=== PATIENT | male | born 1955 | race Caucasian/White ===

== ENCOUNTER → 2022-06-04 12:00 | Outpatient (CLI) | payer MEDICARE, MEDICAID, SELFPAY ==
--- NOTE | 2022-06-04 | DI.US.S_ITS ---
PROCEDURE: US ABDOMEN COMPLETE INDICATIONS: ABNORMAL SERUM ENZYME LEVEL, UNSPECIFIED TECHNIQUE: Real-time scanning was performed of the abdominal and retroperitoneal organs, with image documentation. COMPARISON: None. FINDINGS: Liver: 15 cm. Overall echotexture is within normal limits. No focal mass identified sonographically. Gallbladder: Within normal limits Biliary tree: CBD measures 4 mm. No intrahepatic dilation. Pancreas: Within normal limits Spleen: Obscured by bowel gas Kidneys: Right kidney measures 9 cm. Left kidney measures 11 cm. Left renal cyst measures up to 3.9 x 3.7 cm. No hydronephrosis. Aorta: No aneurysmal dilation Iliacs: No aneurysmal dilation IVC: Patent Free fluid/miscellaneous: No pathologic free fluid IMPRESSION: No pathologic dilation of the biliary tree. No acute sonographic gallbladder pathology. No significant sonographic abnormality of the liver. Dictated by: Miguelito Antonio M.D. on 06/04/2022 at 16:25 Approved by: Miguelito Antonio M.D. on 06/04/2022 at 16:26
== END ==
PROVIDERS: PCP Family Medicine; Referring Provider Family Medicine; Visit Provider Family Medicine
DX: R74.9 Abnormal serum enzyme level, unspecified (principal)
CPT/HCPCS: 76700

== ENCOUNTER 2023-09-11 09:58 | Emergency (ER) | payer MEDICARE, MEDICAID, SELFPAY ==
[2023-09-11] VITALS (11 sets, daily range): BP systolic 127–153; BP diastolic 70–76; PULSE 74–85; RESP 17; TEMP 36.8–36.9; O2SAT 95–98
--- NOTE | 2023-09-11 10:14 | DI.RAD.S_ITS ---
PROCEDURE: XR CHEST 1V INDICATIONS: cough TECHNIQUE: One view of the chest was acquired. COMPARISON: None. FINDINGS: Surgical changes and devices: None. Lungs and pleura: Small linear left basilar opacity likely atelectasis. Mediastinum: Mediastinal contours appear normal. Heart size is normal. Bones and chest wall: No suspicious bony lesions. Overlying soft tissues appear unremarkable. IMPRESSION: No acute pulmonary process. Dictated by: Lois Hernández M.D. on 09/11/2023 at 11:16 Approved by: Lois Hernández M.D. on 09/11/2023 at 11:17
--- NOTE | 2023-09-11 10:14 | EKG_ITS ---
[address] [address] Test Date: 2023-09-11 Pat Name: Marco Grullon Department: Room: Gender: Male [employer]: NINA : [id number] Requested By: Order Number: [id number] Reading MD: Rohan Ricketts MD Measurements Intervals [place] Rate: 77 P: 39 OH: 130 QRS: 51 QRSD: 74 T: 39 QT: 398 QTc: 450 Interpretive Statements Normal sinus rhythm Electronically Signed On 09-12-2023 7:25:04 PDT by Rohan Ricketts MD
[2023-09-11 11:12] LABS: Add Manual Diff / Slide Review NO; Basophils Absolute Auto 0 /uL (0-100); Basophils Percent Auto 0.5 % (0-2); Eosinophils Absolute Auto 700 /uL (0-450); Eosinophils Percent Auto 9.1 % (2-4); Hematocrit 41.3 % (41-53); Hemoglobin 13.6 g/dL (13.5-17.5); Lymphocytes Absolute Auto 2600 /uL (1100-4500); Lymphocytes Percent Auto 32.9 % (25-40); Mean Corpuscular HGB Conc 32.9 % (30-36); Mean Corpuscular Hemoglobin 29.9 PG (26-34); Mean Corpuscular Volume 90.9 fL (80-100); Monocytes Absolute Auto 600 /uL (0-900); Monocytes Percent Auto 8.1 % (3-14); Neutrophils Absolute Auto 4000 /uL (1500-7000); Neutrophils Percent Auto 49.4 % (50-75); Platelet Count 345 X10^3/uL (150-400); Red Blood Cell Count 4.55 X10^6/uL (4.5-5.9); Red Cell Distribution Width 13.6 % (11.6-14.8)
[2023-09-11 11:28] LABS: Lactate (Lactic Acid) 0.8 mmol/L (0.7-2.1)
[2023-09-11 11:29] LABS: Alanine Aminotransferase 57 IU/L (<50); Albumin 4.1 g/dL (3.5-5.0); Albumin Globulin Ratio 1.1 (1.0-2.8); Alkaline Phosphatase 173 U/L (38-126); Aspartate Aminotransferase 37 IU/L (17-59); Bilirubin Total 0.6 mg/dL (0.2-1.3); Blood Urea Nitrogen 23 mg/dL (9-20); Calcium 8.9 mg/dL (8.4-10.2); Carbon Dioxide 30 mmol/L (22-32); Chloride 106 mmol/L (98-107); Estimated Glomerular Filt Rate 58 mL/min (>60); Globulin 3.6 g/dL (1.7-4.1); Glucose 94 mg/dL (80-110); HEMOLYSIS < 15 (0-50); Lipase 76 U/L (23-300); Potassium 4.7 mmol/L (3.4-5.1); Sodium 141 mmol/L (137-145); Total Protein 7.7 g/dL (6.3-8.2)
[2023-09-11 11:41] LABS: Troponin I < 0.012 ng/mL (0.01-0.034)
[2023-09-11 11:47] LABS: Procalcitonin 0.056 ng/mL (<0.5)
[2023-09-11 12:02] LABS: Adenovirus Not Detected (Not Detect); B. parapertussis Not Detected (Not Detecte); Bordetella pertussis Not Detected (Not Detect); Chlamydophila pneumoniae Not Detected (Not Detect); Coronavirus 229E Not Detected (Not Detect); Coronavirus HKU1 Not Detected (Not Detect); Coronavirus NL 63 Not Detected (Not Detect); Coronavirus OC43 Not Detected (Not Detect); Human Metapneumovirus Not Detected (Not Detect); Human Rhinovirus/Enterovirus Not Detected (Not Detect); Influenza A Not Detected (Not Detect); Influenza B Not Detected (Not Detect); Mycoplasma pneumoniae Not Detected (Not Detect); Parainfluenza Virus 1 Not Detected (Not Detect); Parainfluenza Virus 2 Not Detected (Not Detect); Parainfluenza Virus 3 Not Detected (Not Detect); Parainfluenza Virus 4 Not Detected (Not Detect); Respiratory Syncytial Virus Not Detected (Not Detect)
[2023-09-11 12:05] LABS: SARS- CoV-2 Detected (Not Detecte)
[2023-09-11 12:10] LABS: Urine Volume 10mL (spun)
[2023-09-11 12:21] LABS: Bacteria Urine None Seen; RBC Urine None Seen (0-5/HPF); Squamous Epithelial Cell Urine None Seen (0-5/HPF); WBC Urine 0-1/HPF (0-5/HPF)
--- NOTE | 2023-09-11 12:21 | ED_ITS ---
HPI - Abdominal Pain General Chief Complaint: Abdominal Pain Stated Complaint: abd/back pain t-10 Time Seen by Provider: 09/11/23 12:21 Source: patient Mode of arrival: Wheelchair History of Present Illness HPI narrative: Patient is a 67-year-old male history of to subarachnoid hemorrhages in the past, short-term memory loss, hyperlipidemia AVM of the brain recent admission to outside facility August 24 through through August 27 for diverticulitis with abscess. It was managed and followed closely with General surgery. Interventional Radiology did not feel a need to intervene. He was given IV Zosyn in the hospital and discharged home on Augmentin. He presents today with back pain and coughing up green sputum. Sister is with him says he has short- term memory loss. She reports that he has been having some upper abdominal pain for the last couple of days. She does report that he has had quite a lot of flatulence while they been reading in the ED. Patient denies any pain now. He overall appears comfortable. Related Data Allergies Allergy/AdvReac Type Severity Reaction Status Date / Time No Known Drug Allergies Allergy Verified 09/11/23 11:51 Patient History Social History Smoking Status: Former smoker Smoking Status: Former smoker alcohol intake frequency: other Substance Use Type: does not use Exam Initial Vital Signs Initial Vital Signs: Vital Signs Temperature 98.5 F 09/11/23 10:09 Pulse Rate 85 09/11/23 10:09 Respiratory Rate 17 09/11/23 10:09 Blood Pressure 127/72 09/11/23 10:09 Pulse Oximetry 95 09/11/23 10:09 Oxygen Delivery Method Room Air 09/11/23 10:09 GENERAL: Alert well-appearing 67-year-old male and in no acute distress. HEENT: Head atraumatic,EOMI, pupils reactive, face symmetric, moist mucous membranes CARDIOVASCULAR: Regular rate and rhythm without murmurs, rubs or gallops. RESPIRATORY: Breath sounds equal bilaterally, no wheezes rales or rhonchi. ABDOMEN: Soft nontender slightly distended no guarding no rebound EXTREMITIES: Normal range of motion, no clubbing or edema. Neurovascularly intact NEUROLOGICAL: Moving all extremities no facial droop no focal deficits SKIN: Warm, dry, no laceration, no petechiae, no rashes or lesions. Course Orders Ordered: ED Orders 09/11/23 11:00 Complete Blood Count AUTO DIFF Stat Comprehensive Metabolic Panel Stat Lactate (Lactic Acid) Stat Lipase Stat Procalcitonin Stat Trop I [Troponin I] Stat 09/11/23 11:02 Respiratory Panel (Film Array) Stat 09/11/23 11:43 Urine Microscopic Stat 09/11/23 13:37 CT abdomen pelvis w con Stat Discontinued Medications Ondansetron HCl (Ondansetron 4 Mg/2 Ml Inj) 4 mg IV NOW PRN PRN Reason: Nausea And Vomiting Ondansetron HCl (Ondansetron 4 Mg Odt) 4 mg PO NOW PRN PRN Reason: Nausea And Vomiting Vital Signs Vital signs: Vital Signs - 8 hr 09/11/23 11:17 09/11/23 11:30 09/11/23 11:30 Temperature Pulse Rate 80 80 Blood Pressure 153/72 H Pulse Oximetry 95 96 09/11/23 12:00 09/11/23 12:30 09/11/23 12:30 Temperature Pulse Rate 80 75 Blood Pressure 138/76 Pulse Oximetry 98 96 09/11/23 13:00 09/11/23 13:00 09/11/23 13:30 Temperature Pulse Rate 78 74 Blood Pressure 151/71 H Pulse Oximetry 96 97 09/11/23 13:30 09/11/23 14:00 09/11/23 14:00 Temperature Pulse Rate 80 Blood Pressure 137/70 145/71 H Pulse Oximetry 96 09/11/23 14:30 09/11/23 15:00 09/11/23 15:30 Temperature 98.3 F Pulse Rate 80 75 79 Blood Pressure Pulse Oximetry 97 96 95 09/11/23 15:30 Temperature Pulse Rate Blood Pressure 152/70 H Pulse Oximetry MDM - Abdominal Pain Lab Data 09/11/23 11:00 09/11/23 11:00 Labs: Lab Results 09/11/23 09/11/23 09/11/23 Range/Units 11:00 11:02 11:43 WBC 8.0 (4.5-11.0) X10^3/uL RBC 4.55 (4.5-5.9) X10^6/uL Hgb 13.6 (13.5-17.5) g/dL Hct 41.3 (41-53) % MCV 90.9 (80-100) fL MCH 29.9 (26-34) PG MCHC 32.9 (30-36) % RDW 13.6 (11.6-14.8) % Plt Count 345 (150-400) X10^3/uL Neut % (Auto) 49.4 L (50-75) % Lymph % (Auto) 32.9 (25-40) % [place] % (Auto) 8.1 (3-14) % Eos % (Auto) 9.1 H (2-4) % Baso % (Auto) 0.5 (0-2) % Neut # (Auto) 4000 (4053-0338) /uL Lymph # (Auto) 2600 (8457-5209) /uL [place] # (Auto) 600 (0-900) /uL Eos # (Auto) 700 H (0-450) /uL Baso # (Auto) 0 (0-100) /uL Sodium 141 (137-145) mmol/L Potassium 4.7 (3.4-5.1) mmol/L Chloride 106 (98-107) mmol/L Carbon Dioxide 30 (22-32) mmol/L BUN 23 H (9-20) mg/dL Creatinine 1.35 H (0.66-1.25) mg/dL Estimated GFR 58 L (>60) mL/min BUN/Creatinine Ratio 17.0 (6-22) Glucose 94 (80-110) mg/dL Lactate 0.8 (0.7-2.1) mmol/L Calcium 8.9 (8.4-10.2) mg/dL Total Bilirubin 0.6 (0.2-1.3) mg/dL AST 37 (17-59) IU/L ALT 57 H (<50) IU/L Alkaline Phosphatase 173 H (38-126) U/L Troponin I < 0.012 (0.01-0.034) ng/mL Total Protein 7.7 (6.3-8.2) g/dL Albumin 4.1 (3.5-5.0) g/dL Globulin 3.6 (1.7-4.1) g/dL Albumin/Globulin Ratio 1.1 (1.0-2.8) Lipase 76 (23-300) U/L Procalcitonin 0.056 (<0.5) ng/mL Urine RBC None seen (0-5/HPF) Urine WBC 0-1/hpf (0-5/HPF) Ur Squamous Epith Cells None seen (0-5/HPF) Urine Bacteria None seen (None) Ur Culture Indicated? Cult not indicated Vol Urine Centrifuged 10ml (spun) Chlamy pneumoniae PCR Not detected (Not Detect) Adenovirus (PCR) Not detected (Not Detect) B.parapertussis DNA PCR Not detected (Not Detecte) Coronavirus OC43 (PCR) Not detected (Not Detect) Coronavirus HKU1 (PCR) Not detected (Not Detect) Coronavirus 229E (PCR) Not detected (Not Detect) SARS-CoV-2 (PCR) Detected H (Not Detecte) Coronavirus NL63 (PCR) Not detected (Not Detect) Human Metapneumovir PCR Not detected (Not Detect) Influenza Type A (PCR) Not detected (Not Detect) Influenza Type B (PCR) Not detected (Not Detect) M. pneumoniae (PCR) Not detected (Not Detect) Parainfluenza 1 (PCR) Not detected (Not Detect) Parainfluenza 2 (PCR) Not detected (Not Detect) Parainfluenza 3 (PCR) Not detected (Not Detect) Parainfluenza 4 (PCR) Not detected (Not Detect) RSV (PCR) Not detected (Not Detect) Entero/Rhino (PCR) Not detected (Not Detect) Point of care testing: Urine Dip Bedside Urine Glucose Negative Bedside Urine Bilirubin - Negative Bedside Urine Ketone - Negative Urine Specific [place] 1.020 Bedside Urine Occult Blood - Negative Bedside Urine pH 5.5 Bedside Urine Protein +/- 15 Bedside Urine Urobilinogen - Negative Bedside Urine Nitrite - Negative Bedside Urine Leukocytes - Negative Esterase Imaging Data CT scan - abdomen/pelvis: Radiologist's Impression: ADDENDUMThis report includes an Addendum and supersedes previous reports for this exam. PROCEDURE: CT ABDOMEN PELVIS W CON INDICATIONS: pain hx of diverticulitis with abcess TECHNIQUE: After the administration of intravenous contrast, axial sections acquired from the lung bases to the pubic symphysis. Coronal and sagittal reformats were performed. For radiation dose reduction, the following was used: automated exposure control, adjustment of mA and/or kV according to patient size. COMPARISON: None. FINDINGS: Image quality: Diagnostic. Lower Chest: No significant findings. ABDOMEN: Liver: No solid mass. Gallbladder: No radiopaque gallstones or wall thickening. Biliary ducts: No biliary dilation. Pancreas: No ductal dilation. Spleen: Size is within normal limits. Adrenal Glands: No adrenal nodules. Kidneys and Ureters: No hydronephrosis. No solid mass. No complex renal cystic lesion which requires follow up. Stomach and Bowel: There is acute sigmoid diverticulitis. There is an associated early subjacent abscess which is predominantly air-filled but has associated fluid. It measures approximately 2.3 x 1.7 cm. Reference image 64 series 2. On that same image, a small amount of free subjacent air in the fat is noted and a small distance from the abscess cavity. Peritoneum: No abnormal intraperitoneal fluid. No free air. Ventral Wall: No significant ventral hernia. Abdominal Nodes: No retroperitoneal or mesenteric adenopathy by size criteria. Vessels: Aorta and inferior vena cava are normal in size. Extensive atherosclerotic peripheral vascular disease. Suspect bilateral flow limiting common iliac artery stenosis. The aorta has a stenosis of perhaps 50%. PELVIS: Pelvic Organs: Mild prostatomegaly.. Bladder: No bladder wall thickening, accounting for underdistention. Pelvic Nodes: No enlarged lymph nodes. Miscellaneous: Small bilateral fat containing inguinal hernias. Bones: No aggressive osseous abnormality. There is a mild superior endplate compression of T12 which may be subacute. IMPRESSION: 1. Perforated sigmoid diverticulitis with small subjacent abscess containing predominantly air and minimal air present in the tissues at outside of the abscess. 2. Suspect hemodynamically sig aortoiliac disease. Recommend correlation for presence or absence of lifestyle limiting claudication symptoms. 3. A mild T12 compression may be subacute. Dictated by: Roshan Edmondson M.D. on 09/11/2023 at 14:44 Approved by: Roshan Edmondson M.D. on 09/11/2023 at 14:52 ADDENDUM: Addendum: Comparison is made to a prior study from [facility] dated 08/25/2023. Diverticulitis with associated Radha diverticular abscess was present at that time as well. There was a large amount of air in the cavity at that time as well, indicating that there was fistulous communication. The size of the abscess has decreased in size. It previously measured 4.0 x 2.3 cm. It currently measures 2.3 x 1.7 cm. The compression fracture of T12 was present on the previous study as well. It is slightly progressed. ADDENDED IMPRESSION: 1. Perforated sigmoid diverticulitis with small subjacent abscess containing predominantly air and minimal air present in the tissues at outside of the abscess. On a previous study on 08/25/2023, there was also perforated diverticulitis with fistulous communication to an abscess cavity. This abscess cavity has definitely decreased in size since the previous study. 2. Suspect hemodynamically significant aortoiliac disease. Recommend correlation for presence or absence of lifestyle limiting claudication symptoms. 3. A mild T12 compression is subacute and has slightly progressed. Dictated by: Roshan Edmondson M.D. on 09/11/2023 at 15:08 Approved by: Roshan Edmondson M.D. on 09/11/2023 at 15:12 Addendum Dictated By: Roshan Edmondson MD Addendum Signed By: 09/11/231511 Addendum Cosigned By: DD/ /25/1512 TD/TT: 09/11/2301/25/1512 PROCEDURE: CT ABDOMEN PELVIS W CON INDICATIONS: pain hx of diverticulitis with abcess TECHNIQUE: After the administration of intravenous contrast, axial sections acquired from the lung bases to the pubic symphysis. Coronal and sagittal reformats were performed. For radiation dose reduction, the following was used: automated exposure control, adjustment of mA and/or kV according to patient size. COMPARISON: None. FINDINGS: Image quality: Diagnostic. Lower Chest: No significant findings. ABDOMEN: Liver: No solid mass. Gallbladder: No radiopaque gallstones or wall thickening. Biliary ducts: No biliary dilation. Pancreas: No ductal dilation. Spleen: Size is within normal limits. Adrenal Glands: No adrenal nodules. Kidneys and Ureters: No hydronephrosis. No solid mass. No complex renal cystic lesion which requires follow up. Stomach and Bowel: There is acute sigmoid diverticulitis. There is an associated early subjacent abscess which is predominantly air-filled but has associated fluid. It measures approximately 2.3 x 1.7 cm. Reference image 64 series 2. On that same image, a small amount of free subjacent air in the fat is noted and a small distance from the abscess cavity. Peritoneum: No abnormal intraperitoneal fluid. No free air. Ventral Wall: No significant ventral hernia. Abdominal Nodes: No retroperitoneal or mesenteric adenopathy by size criteria. Vessels: Aorta and inferior vena cava are normal in size. Extensive atherosclerotic peripheral vascular disease. Suspect bilateral flow limiting common iliac artery stenosis. The aorta has a stenosis of perhaps 50%. PELVIS: Pelvic Organs: Mild prostatomegaly.. Bladder: No bladder wall thickening, accounting for underdistention. Pelvic Nodes: No enlarged lymph nodes. Miscellaneous: Small bilateral fat containing inguinal hernias. Bones: No aggressive osseous abnormality. There is a mild superior endplate compression of T12 which may be subacute. IMPRESSION: 1. Perforated sigmoid diverticulitis with small subjacent abscess containing predominantly air and minimal air present in the tissues at outside of the abscess. 2. Suspect hemodynamically sig aortoiliac disease. Recommend correlation for presence or absence of lifestyle limiting claudication symptoms. 3. A mild T12 compression may be subacute. Dictated by: Roshan Edmondson M.D. on 09/11/2023 at 14:44 Chest x-ray: Radiologist's Impression: PROCEDURE: XR CHEST 1V INDICATIONS: cough TECHNIQUE: One view of the chest was acquired. COMPARISON: None. FINDINGS: Surgical changes and devices: None. Lungs and pleura: Small linear left basilar opacity likely atelectasis. Mediastinum: Mediastinal contours appear normal. Heart size is normal. Bones and chest wall: No suspicious bony lesions. Overlying soft tissues appear unremarkable. IMPRESSION: No acute pulmonary process. Dictated by: Lois Hernández M.D. on 09/11/2023 at 11:16 ECG Data Attestation: I personally reviewed and interpreted this ECG as follows: Interpretation: Normal sinus rhythm rate 77 NE interval 130 QRS [address] changes MDM Narrative Medical decision making narrative: [facility] CC: Abdominal pain cough phlegm Complicating co-morbidities: Short-term memory loss multiple subarachnoid hemorrhages recent admission with diverticulitis and abscess Corroborating data: [ ] Data collected from: Sister at bedside Medical records reviewed: Records from [facility] reviewed Differential considered: Sepsis, perforation bowel obstruction, Exam documented above, pertinent findings include: Mild distention overall appears well abdomen is soft nontender Lab Test results independently reviewed as above. Pertinent findings: WBC 8.0, hemoglobin 13.6 hematocrit 41.3 platelets 345, BUN 23 creatinine 1.3 which is baseline lactate 0.8, bilirubin 0.6, AST 37, ALT 57, alk-phos 173, troponin negative procalcitonin 0.056 Independently reviewed EKG as above Imaging studies independently reviewed: Chest x-ray no acute cardiopulmonary process CT does show continued abscess with perforation but it is smaller than previously. Today measures 2.2 x 1.7 previously 4.0 x 2.3 Consultations: 15:07 I spoke with radiologist Dr. Edmondson he was able to compare today's CT with outside facility, reports that there is decreased size and abscess Dr. Nick surgery updated on patient's symptoms test results has reviewed CT herself. States that patient consistent on Augmentin and finish out the course. Shrinking abscess. May have a fistula but no intervention at this time Treatments: None Re-evaluations: Patient has not required anything for his abdominal pain his abdomen is soft he has not having any pain in the ED. Discussion: Patient is 67-year-old male history of short-term memory last recent admission and diagnosis diverticulitis with abscess presents today with upper respiratory like symptoms and increasing pain. CT shows actual improvement of the abscess confirmed by Radiology. Surgery was again consulted and recommend continued management. Blood work is overall reassuring without any evidence of sepsis or significant leukocytosis. Due to patient's upper respiratory symptoms he was swabbed the respiratory panel and he is positive for COVID. He has not hypoxic chest x-ray is clear at this time recommend supportive care only. Discharge Plan Departure Patient Disposition: Home Clinical Impression: Diverticulitis, COVID-19 Instructions: DI for Diverticulitis Activity Restrictions/Additional Instructions: *You have been diagnosed with you have COVID-19 and a continued abscess *What to do: The abscess today is a lot smaller than what it was. I did consult with our surgeon here who recommended continuing your antibiotics You also have COVID-19. Expect to have fever and not feel well *Continue to take medications as directed Condition antibiotics as prescribed *Follow up with your primary care provider in 2-3 days or call [phone] *Return to ER if you should have increasing abdominal pain change in bowel habits persistent vomiting or any new, worsening or concerning symptoms Referrals: Hemanth Segura MD [Primary Care Provider] - Stand Alone Forms: Patient Portal/API
[2023-09-11 12:22] LABS: Culture Indicated Urine Cult Not Indicated
--- NOTE | 2023-09-11 13:37 | DI.CT.S_ITS ---
PROCEDURE: CT ABDOMEN PELVIS W CON INDICATIONS: pain hx of diverticulitis with abcess TECHNIQUE: After the administration of intravenous contrast, axial sections acquired from the lung bases to the pubic symphysis. Coronal and sagittal reformats were performed. For radiation dose reduction, the following was used: automated exposure control, adjustment of mA and/or kV according to patient size. COMPARISON: None. FINDINGS: Image quality: Diagnostic. Lower Chest: No significant findings. ABDOMEN: Liver: No solid mass. Gallbladder: No radiopaque gallstones or wall thickening. Biliary ducts: No biliary dilation. Pancreas: No ductal dilation. Spleen: Size is within normal limits. Adrenal Glands: No adrenal nodules. Kidneys and Ureters: No hydronephrosis. No solid mass. No complex renal cystic lesion which requires follow up. Stomach and Bowel: There is acute sigmoid diverticulitis. There is an associated early subjacent abscess which is predominantly air-filled but has associated fluid. It measures approximately 2.3 x 1.7 cm. Reference image 64 series 2. On that same image, a small amount of free subjacent air in the fat is noted and a small distance from the abscess cavity. Peritoneum: No abnormal intraperitoneal fluid. No free air. Ventral Wall: No significant ventral hernia. Abdominal Nodes: No retroperitoneal or mesenteric adenopathy by size criteria. Vessels: Aorta and inferior vena cava are normal in size. Extensive atherosclerotic peripheral vascular disease. Suspect bilateral flow limiting common iliac artery stenosis. The aorta has a stenosis of perhaps 50%. PELVIS: Pelvic Organs: Mild prostatomegaly.. Bladder: No bladder wall thickening, accounting for underdistention. Pelvic Nodes: No enlarged lymph nodes. Miscellaneous: Small bilateral fat containing inguinal hernias. Bones: No aggressive osseous abnormality. There is a mild superior endplate compression of T12 which may be subacute. IMPRESSION: 1. Perforated sigmoid diverticulitis with small subjacent abscess containing predominantly air and minimal air present in the tissues at outside of the abscess. 2. Suspect hemodynamically sig aortoiliac disease. Recommend correlation for presence or absence of lifestyle limiting claudication symptoms. 3. A mild T12 compression may be subacute. Dictated by: Roshan Edmondson M.D. on 09/11/2023 at 14:44 Approved by: Roshan Edmondson M.D. on 09/11/2023 at 14:52
== END 2023-09-11 15:32 | disposition home or self-care (01) ==
PROVIDERS: Emergency Provider Emergency Medicine; PCP Family Medicine
DX: U07.1 COVID-19 (principal); K57.92 Diverticulitis of intestine, part unspecified, without perforation or abscess without bleeding
CPT/HCPCS: 36415; 71045; 74177; 80053; 81003; 81015; 83605; 83690; 84145; 84484; 85025; 87633; 93005; 99284; Q9967

== ENCOUNTER → 2023-12-15 14:12 | Outpatient (CLI) | payer MEDICARE, MEDICAID, SELFPAY ==
[2023-12-15 14:52] LABS: Add Manual Diff / Slide Review NO; Basophils Absolute Auto 100 /uL (0-100); Basophils Percent Auto 0.6 % (0-2); Eosinophils Absolute Auto 300 /uL (0-450); Eosinophils Percent Auto 3.6 % (2-4); Hematocrit 41.7 % (41-53); Hemoglobin 13.9 g/dL (13.5-17.5); Lymphocytes Absolute Auto 2500 /uL (1100-4500); Lymphocytes Percent Auto 30.4 % (25-40); Mean Corpuscular HGB Conc 33.4 % (30-36); Mean Corpuscular Hemoglobin 30.6 PG (26-34); Mean Corpuscular Volume 91.6 fL (80-100); Monocytes Absolute Auto 500 /uL (0-900); Monocytes Percent Auto 6.2 % (3-14); Neutrophils Absolute Auto 4900 /uL (1500-7000); Neutrophils Percent Auto 59.2 % (50-75); Platelet Count 212 X10^3/uL (150-400); Red Blood Cell Count 4.56 X10^6/uL (4.5-5.9); Red Cell Distribution Width 14.3 % (11.6-14.8); White Blood Cell Count 8.3 X10^3/uL (4.5-11.0)
[2023-12-15 15:34] LABS: Alanine Aminotransferase 44 IU/L (<50); Albumin 3.8 g/dL (3.5-5.0); Albumin Globulin Ratio 1.3 (1.0-2.8); Alkaline Phosphatase 115 U/L (38-126); Aspartate Aminotransferase 36 IU/L (17-59); BUN Creatinine Ratio 20.5 (6-22); Bilirubin Total 0.4 mg/dL (0.2-1.3); Blood Urea Nitrogen 26 mg/dL (9-20); Calcium 9.3 mg/dL (8.4-10.2); Carbon Dioxide 25 mmol/L (22-32); Chloride 107 mmol/L (98-107); Estimated Glomerular Filt Rate > 60 mL/min (>60); Glucose 131 mg/dL (80-110); HEMOLYSIS 27 (0-50); Potassium 4.1 mmol/L (3.4-5.1); Sodium 140 mmol/L (137-145); Total Protein 6.8 g/dL (6.3-8.2)
== END ==
PROVIDERS: PCP Family Medicine; Referring Provider Surgery; Visit Provider Surgery
DX: K57.80 Diverticulitis of intestine, part unspecified, with perforation and abscess without bleeding (principal)
CPT/HCPCS: 36415; 80053; 85025; 99213

== ENCOUNTER → 2023-12-16 09:10 | Outpatient (CLI) | payer MEDICARE, MEDICAID, SELFPAY ==
--- NOTE | 2023-12-16 09:11 | DI.CT.S_ITS ---
PROCEDURE: CT ABDOMEN PELVIS W CON INDICATIONS: Diverticular abscess TECHNIQUE: After the administration of intravenous contrast, axial sections acquired from the lung bases to the pubic symphysis. Coronal and sagittal reformats were performed. For radiation dose reduction, the following was used: automated exposure control, adjustment of mA and/or kV according to patient size. COMPARISON: [facility], CT, CT ABDOMEN PELVIS W CON, 09/11/2023, 14:12. FINDINGS: Image quality: Diagnostic. Lower Chest: Mild linear bibasilar atelectasis. Coronary artery calcifications. Mild cardiomegaly. Right atrial enlargement. ABDOMEN: Liver: No solid mass. Gallbladder: No radiopaque gallstones or wall thickening. Biliary ducts: No biliary dilation. Pancreas: No ductal dilation. Spleen: Size is within normal limits. Adrenal Glands: No adrenal nodules. Kidneys and Ureters: No hydronephrosis. No solid mass. No complex renal cystic lesion which requires follow up. Stomach and Bowel: Resolution of previous air-filled Radha diverticular sigmoid abscess. Sigmoid diverticulosis without evidence of acute diverticulitis. Peritoneum: No abnormal intraperitoneal fluid. No free air. Ventral Wall: No significant ventral hernia. Abdominal Nodes: No retroperitoneal or mesenteric adenopathy by size criteria. Vessels: Aorta and inferior vena cava are normal in size. [id number] complex hard and soft distal aortic plaque resulting in a luminal stenosis of nearly 50%. A right common iliac artery stenosis may potentially be hemodynamically significant. PELVIS: Pelvic Organs: Prostatomegaly, as before. Bladder: No bladder wall thickening, accounting for underdistention. Pelvic Nodes: No enlarged lymph nodes. Miscellaneous: No inguinal hernias are seen. Bones: No aggressive osseous abnormality. Again noted is a T12 compression which has refractured, with an acute or subacute component, [id number]. IMPRESSION: 1. Resolution of sigmoid diverticulitis and a Radha diverticular abscess. 2. Interval Re fracture at T12, acute or subacute. 3. Aortoiliac atherosclerotic disease is potentially hemodynamically significant. Dictated by: Roshan Edmondson M.D. on 12/16/2023 at 15:43 Approved by: Roshan Edmondson M.D. on 12/16/2023 at 15:48
== END ==
LOC: CT 09:10
PROVIDERS: PCP Family Medicine; Referring Provider Surgery; Visit Provider Surgery
DX: K57.80 Diverticulitis of intestine, part unspecified, with perforation and abscess without bleeding (principal); I70.0 Atherosclerosis of aorta; M48.54XA Collapsed vertebra, not elsewhere classified, thoracic region, initial encounter for fracture; N40.0 Benign prostatic hyperplasia without lower urinary tract symptoms; I25.10 Atherosclerotic heart disease of native coronary artery without angina pectoris; I51.7 Cardiomegaly
CPT/HCPCS: 74177; Q9967

== ENCOUNTER → 2024-01-26 13:16 | Outpatient (CLI) | payer MEDICARE, MEDICAID, SELFPAY ==
--- NOTE | 2024-01-26 | DI.RAD.S_ITS ---
PROCEDURE: XR CHEST 2V INDICATIONS: COUGH TECHNIQUE: 2 views of the chest were acquired. COMPARISON: [facility], CR, XR CHEST 1V, 09/11/2023, 10:17. FINDINGS: Heart, mediastinum and pulmonary vascular: Heart is normal in size and configuration. Mediastinum is unremarkable. Pulmonary vascular is normal. Lungs: Mild atelectasis present in both lung bases. Pleural spaces: Normal-no effusions or pneumothorax. Bones and soft tissues: Syndesmophytes bridging thoracic vertebral bodies -3 history of chronic ankylosing spondylitis. There is mild degenerative disc disease throughout the thoracic spine IMPRESSION: Mild bibasilar atelectasis. Dictated by: Rohan Sheikh M.D. on 01/27/2024 at 10:13 Approved by: Rohan Sheikh M.D. on 01/27/2024 at 10:15
== END ==
LOC: RAD 13:17
PROVIDERS: PCP Family Medicine; Referring Provider Family Medicine; Visit Provider Family Medicine
DX: J98.11 Atelectasis (principal); R05.9 Cough, unspecified
CPT/HCPCS: 71046

== ENCOUNTER 2024-03-08 18:03 | Emergency (ER) | payer MEDICARE, MEDICAID, SELFPAY ==
[2024-03-08] VITALS (41 sets, daily range): BP systolic 119–159; BP diastolic 61–82; PULSE 80–95; RESP 17–36; TEMP 36.9; O2SAT 92–99; BMI 21.7
--- NOTE | 2024-03-08 18:41 | DI.CT.S_ITS ---
PROCEDURE: CT HEAD/BRAIN WO CON INDICATIONS: previous strokes and sudden onset worst headache of life. TECHNIQUE: Noncontrast 4.5 mm thick angled axial sections acquired from the foramen magnum to the vertex, with coronal and sagittal reformats. For radiation dose reduction, the following was used: automated exposure control, adjustment of mA and/or kV according to patient size. COMPARISON: None. FINDINGS: Image quality: Diagnostic. Brain: There is ill-defined masslike prominence the central portion of the frontal lobe extending to the level of the lateral ventricles. It is poorly defined with areas of hyperdensity measuring approximately 3.9 x 2.9 cm. It is causing 0.7 cm left right midline shift. Hyperdensity is present within the ventricles most severe in the frontal ventricles as well as 3rd ventricle. There is suspected mild ventricular dilation, although no priors are available for comparison. There is cerebral volume loss for age, with resultant ventricular and sulcal prominence. There are periventricular and deep white matter chronic small vessel ischemic changes. There is intracranial internal carotid artery atherosclerosis. Skull and face: Calvarium and visualized facial bones appear intact, without suspicious lesions. Sinuses: Visualized sinuses and mastoids are clear. IMPRESSION: Ill-defined mass with hyperdensity causing effacement of the left frontal horn as well as midline shift. Intraventricular hemorrhage is present. While areas of hyperdensity within the mass are felt to represent hemorrhage, other areas appear denser than expected for hemorrhage and are suspicious for calcification. No priors are available. Mass may be related to prior vascular malformation with recent hemorrhage. However, other etiologies cannot be excluded. The above findings were discussed with Dr. Serjio Moseley on 03/08/2024 at 7:13 p.m.. Dictated by: Lois Hernández M.D. on 03/08/2024 at 19:11 Approved by: Lois Hernández M.D. on 03/08/2024 at 19:19
--- NOTE | 2024-03-08 18:45 | PC.NURSE ---
This RN is familiar with this patient and smile is at this patient baseline. right sided of smile doesn't rise when patient actively smiles.
--- NOTE | 2024-03-08 18:59 | ED_ITS ---
HPI - Headache General Chief Complaint: Headache Stated Complaint: pain in neck and head previous stroke Time Seen by Provider: 03/08/24 18:56 History of Present Illness HPI Narrative: 68-year-old male with history of prior AVM diagnosed at age 20 that was felt to be inoperable, resides at [facility] in [place] due to encephalitis diagnosis 8 years ago, complained of acute onset nontraumatic severe headache today 2pm at the base of his neck radiating to the top of his head posteriorly. No nausea or vomiting. Headache symptoms have been persisting. He finally arrived here for further evaluation. No seizure shaking activity. No focal weakness to face arm or leg. Baseline mental status for family who are at bedside. Related Data Home Medications Medication Instructions Recorded Confirmed simvastatin 20 mg tablet 20 mg PO DAILY 12/15/23 12/22/23 tamsulosin 0.4 mg capsule 0.4 mg PO DAILY 12/15/23 12/22/23 Allergies Allergy/AdvReac Type Severity Reaction Status Date / Time No Known Drug Allergies Allergy Verified 12/22/23 15:25 Patient History Medical History Stroke Coronary artery disease Hyperlipemia Hypertension Dementia Social History Smoking Status: Former smoker Smoking Status: Former smoker alcohol intake frequency: other Exam Narrative Exam Narrative: GENERAL: Well-developed patient, in mild distress. HEAD: Atraumatic. Normocephalic. EYES: Pupils equal round and reactive. Extraocular motions intact. No scleral icterus. No injection or drainage. ENT: Nose without bleeding, purulent drainage. Throat without erythema, tonsillar hypertrophy or exudate. Airway patent. Hearing aids bilateral removed, TMs clear. NECK: Trachea midline. Non tender CARDIOVASCULAR: Regular rate and rhythm without murmurs, gallops, or rubs. RESPIRATORY: Clear to auscultation. Breath sounds equal bilaterally. No wheezes, rales, or rhonchi. GASTROINTESTINAL: Abdomen soft, non-tender, nondistended. EXTREMITIES: No edema or joint tenderness. BACK: Nontender without deformity or crepitance. No flank tenderness. NEURO: Alert, looking around, soft but clear speech, cooperative. Cranial nerves 2-12 intact, motor 5/5 upper and lower extremities. SKIN: No rash or erythema of visible areas Initial Vital Signs Initial Vital Signs: Vital Signs Pulse Rate 95 H 03/08/24 18:23 Blood Pressure 159/72 H 03/08/24 18:23 Pulse Oximetry 96 03/08/24 18:23 Course Orders Ordered: Discontinued Medications Dexamethasone (Dexamethasone 10 Mg/Ml Vial) 10 mg IV NOW ONE Stop: 03/08/24 19:03 Last Admin: 03/08/24 19:41 Dose: 10 mg Documented By: RODRIGO Diphenhydramine HCl (Diphenhydramine 50 Mg/Ml Vial) 25 mg IV NOW ONE Stop: 03/08/24 19:03 Last Admin: 03/08/24 19:39 Dose: 25 mg Documented By: RODRIGO Sodium Chloride (Normal Saline 0.9%) 1,000 mls @ 1,000 mls/hr IV BOLUS ONE Stop: 03/08/24 20:01 Last Infusion: 03/08/24 20:50 Dose: Infused Documented By: Admin: 03/08/24 19:33 Dose: 1,000 mls/hr Documented By: RODRIGO Levetiracetam 2,000 mg/ Sodium (Chloride) 120 mls @ 480 mls/hr IV NOW ONE Stop: 03/08/24 20:12 Last Infusion: 03/08/24 21:19 Dose: Infused Documented By: Admin: 03/08/24 20:47 Dose: 480 mls/hr Documented By: RODRIGO Ketorolac Tromethamine (Ketorolac 30 Mg/Ml Vial) 30 mg IV NOW ONE Stop: 03/08/24 19:03 Last Admin: 03/08/24 19:37 Dose: 30 mg Documented By: RODRIGO Ondansetron HCl (Ondansetron 4 Mg/2 Ml Inj) 4 mg IV NOW PRN PRN Reason: Nausea And Vomiting Last Admin: 03/08/24 19:38 Dose: 4 mg Documented By: RODRIGO Ondansetron HCl (Ondansetron 4 Mg Odt) 4 mg SL NOW PRN PRN Reason: Nausea And Vomiting Prochlorperazine (Prochlorperazine 10 Mg/2 Ml Vial) 10 mg IV NOW ONE Stop: 03/08/24 19:03 Last Admin: 03/08/24 19:40 Dose: 10 mg Documented By: RODRIGO Vital Signs Vital signs: Vital Signs - 8 hr 03/08/24 21:35 03/08/24 21:35 03/08/24 21:40 Pulse Rate 80 Respiratory Rate 19 Blood Pressure 119/61 122/64 Pulse Oximetry 94 03/08/24 21:40 Pulse Rate 80 Respiratory Rate 19 Blood Pressure 122/62 Pulse Oximetry 92 MDM - Headache Lab Data Attestation: I reviewed the patient's lab results. Lab results narrative: White blood cell count 8400, hemoglobin 14.3, platelets adequate. BUN 28 with creatinine 1.53, glucose 108, electrolytes unremarkable. 03/08/24 19:00 03/08/24 19:00 Labs: Lab Results 03/08/24 03/08/24 Range/Units 19:00 19:20 WBC 8.4 (4.5-11.0) X10^3/uL RBC 4.72 (4.5-5.9) X10^6/uL Hgb 14.3 (13.5-17.5) g/dL Hct 43.7 (41-53) % MCV 92.6 (80-100) fL MCH 30.4 (26-34) PG MCHC 32.8 (30-36) % RDW 13.9 (11.6-14.8) % Plt Count 214 (150-400) X10^3/uL Neut % (Auto) 59.9 (50-75) % Lymph % (Auto) 30.0 (25-40) % [place] % (Auto) 6.8 (3-14) % Eos % (Auto) 2.3 (2-4) % Baso % (Auto) 1.0 (0-2) % Neut # (Auto) 5000 (6088-5332) /uL Lymph # (Auto) 2500 (9265-4326) /uL [place] # (Auto) 600 (0-900) /uL Eos # (Auto) 200 (0-450) /uL Baso # (Auto) 100 (0-100) /uL PT 10.7 (9.4-12.5) SECONDS INR 0.9 (0.9-1.3) APTT 33 (25.1-36.5) SECONDS Sodium 140 (137-145) mmol/L Potassium 4.4 (3.4-5.1) mmol/L Chloride 106 (98-107) mmol/L Carbon Dioxide 30 (22-32) mmol/L BUN 28 H (9-20) mg/dL Creatinine 1.53 H (0.66-1.25) mg/dL Estimated GFR 49 L (>60) mL/min BUN/Creatinine Ratio 18.3 (6-22) Glucose 108 (80-110) mg/dL Calcium 9.6 (8.4-10.2) mg/dL Magnesium 2.0 (1.6-2.3) mg/dL Total Bilirubin 0.5 (0.2-1.3) mg/dL AST 71 H (17-59) IU/L ALT 79 H (<50) IU/L Alkaline Phosphatase 90 (38-126) U/L Total Creatine Kinase 83 (55-170) U/L Troponin I < 0.012 (0.01-0.034) ng/mL Total Protein 7.7 (6.3-8.2) g/dL Albumin 4.2 (3.5-5.0) g/dL Globulin 3.5 (1.7-4.1) g/dL Albumin/Globulin Ratio 1.2 (1.0-2.8) Ethyl Alcohol < 10 ( - 10) mg/dL SARS-CoV-2 (PCR) Negative (Negative) Point of Care Testing Glucose POC 103 Imaging Data Chest x-ray: Radiologist's Impression: [address] [address] XRay Report Signed Patient: Marco Grullon MR#: [id number] : 1955 Acct:[id number] Age/Sex: 68 / M Date of Service: 03/08/24 Loc: ED Accession Number: [id number] Procedure: XR chest 1V Ordering Provider: Serjio Deleon MD PROCEDURE: XR CHEST 1V INDICATIONS: Possible stroke TECHNIQUE: One view of the chest was acquired. COMPARISON: [facility], , XR CHEST 2V, 01/26/2024, 13:19. FINDINGS: Surgical changes and devices: None. Lungs and pleura: Lungs are clear. No pleural effusions or pneumothorax. Mediastinum: Mediastinal contours appear normal. Heart size is normal. Bones and chest wall: No suspicious bony lesions. Overlying soft tissues appear unremarkable. IMPRESSION: No acute cardiopulmonary pathology. Dictated by: Alex Frederick M.D. on 03/08/2024 at 20:13 Approved by: Alex Frederick M.D. 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 today, no seizure activity, no trauma, no focal deficits, here for evaluation. On CT scanning has intraparenchymal hemorrhage left-sided noted, ED wet read, await Radiology reading. No blood thinners. Anticipate consultation with Neurosurgery to likely transfer. No seizure activity. He has not seem to be having nausea or retching. Systolic blood pressure 140s so far, IV nicardipine not indicated at this time, but goal SBP <[address] noncontrast. Impressions: ?Ill-defined mass with hyper density causing effacement of the left frontal horn as well as midline shift. Intraventricular hemorrhage is present. While areas of hyperdensity within the mass or felt to represent hemorrhage, other areas appear denser than expected for hemorrhage or suspicious for calcification. No priors are available. Mass maybe related to vascular malformation with recent hemorrhage. However, other etiologies can not be excluded.. See radiology report 1920, case discussed with [facility] intake, await call back from Neurosurgery POL printed for review, patient is full code, family query at bedside confirm they want everything done. 2009, call back from [facility] Neurosurgery Dr. 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 We will arrange EMS transfer Air ambulance not available due to ICU friends, we will arrange ALS ground transport, roads are open Critical Care Time Critical Care Time Critical Care Time: Yes Total Critical Care Time: 31 Attestation: The high probability of a clinically significant, sudden or life threatening deterioration of the [neurologic] system(s) required my full and direct attention, intervention and personal management. The aggregate critical care time was [31] minutes. This time is in addition to time spent performing reported procedures but includes the following: [x] Data Review and interpretation [x] Patient assessment and monitoring of vital signs [x] Documentation [x] Medication orders and management Discharge Plan Departure Patient Disposition: [facility] Clinical Impression: Headache, Intracranial hemorrhage, History of cerebral arteriovenous malformation Prescriptions: No Action simvastatin 20 mg tablet 20 mg PO DAILY tamsulosin 0.4 mg capsule 0.4 mg PO DAILY Referrals: Hemanth Segura MD [Primary Care Provider] -
--- NOTE | 2024-03-08 19:06 | DI.RAD.S_ITS ---
PROCEDURE: XR CHEST 1V INDICATIONS: Possible stroke TECHNIQUE: One view of the chest was acquired. COMPARISON: [facility], , XR CHEST 2V, 01/26/2024, 13:19. FINDINGS: Surgical changes and devices: None. Lungs and pleura: Lungs are clear. No pleural effusions or pneumothorax. Mediastinum: Mediastinal contours appear normal. Heart size is normal. Bones and chest wall: No suspicious bony lesions. Overlying soft tissues appear unremarkable. IMPRESSION: No acute cardiopulmonary pathology. Dictated by: Alex Frederick M.D. on 03/08/2024 at 20:13 Approved by: Alex Frederick M.D. on 03/08/2024 at 20:14
[2024-03-08 19:19] LABS: Add Manual Diff / Slide Review NO; Basophils Absolute Auto 100 /uL (0-100); Eosinophils Absolute Auto 200 /uL (0-450); Eosinophils Percent Auto 2.3 % (2-4); Hematocrit 43.7 % (41-53); Hemoglobin 14.3 g/dL (13.5-17.5); Lymphocytes Absolute Auto 2500 /uL (1100-4500); Mean Corpuscular HGB Conc 32.8 % (30-36); Mean Corpuscular Hemoglobin 30.4 PG (26-34); Mean Corpuscular Volume 92.6 fL (80-100); Monocytes Absolute Auto 600 /uL (0-900); Monocytes Percent Auto 6.8 % (3-14); Neutrophils Absolute Auto 5000 /uL (1500-7000); Neutrophils Percent Auto 59.9 % (50-75); Platelet Count 214 X10^3/uL (150-400); Red Blood Cell Count 4.72 X10^6/uL (4.5-5.9); Red Cell Distribution Width 13.9 % (11.6-14.8); White Blood Cell Count 8.4 X10^3/uL (4.5-11.0)
[2024-03-08 19:21] LABS: INR 0.9 (0.9-1.3); Prothrombin Time 10.7 SECONDS (9.4-12.5)
[2024-03-08 19:23] LABS: PTT Partial Thromboplastin Tim 33 SECONDS (25.1-36.5)
[2024-03-08 19:27] LABS: Alanine Aminotransferase 79 IU/L (<50); Albumin 4.2 g/dL (3.5-5.0); Albumin Globulin Ratio 1.2 (1.0-2.8); Alkaline Phosphatase 90 U/L (38-126); Aspartate Aminotransferase 71 IU/L (17-59); BUN Creatinine Ratio 18.3 (6-22); Bilirubin Total 0.5 mg/dL (0.2-1.3); Blood Urea Nitrogen 28 mg/dL (9-20); Calcium 9.6 mg/dL (8.4-10.2); Carbon Dioxide 30 mmol/L (22-32); Chloride 106 mmol/L (98-107); Creatine Kinase 83 U/L (55-170); Estimated Glomerular Filt Rate 49 mL/min (>60); Globulin 3.5 g/dL (1.7-4.1); Glucose 108 mg/dL (80-110); HEMOLYSIS 43 (0-50); Potassium 4.4 mmol/L (3.4-5.1); Sodium 140 mmol/L (137-145); Total Protein 7.7 g/dL (6.3-8.2)
[2024-03-08] MEDS: SODIUM CHLORIDE 0.9% 1,000 ML 1000 ML IV (19:33)
[2024-03-08] MEDS: KETOROLAC 30 MG/ML VIAL IV (19:37)
[2024-03-08 19:38] LABS: Troponin I < 0.012 ng/mL (0.01-0.034)
[2024-03-08] MEDS: ONDANSETRON 4 MG/2 ML INJ IV (19:38)
[2024-03-08] MEDS: diphenhydrAMINE 50 MG/ML VIAL 25 MG IV (19:39)
[2024-03-08] MEDS: PROCHLORPERAZINE 10 MG/2 ML VIAL IV (19:40)
[2024-03-08] MEDS: DEXAMETHASONE 10 MG/ML VIAL IV (19:41)
[2024-03-08 19:45] LABS: COVID19 -Nasal RAPID Negative (Negative)
[2024-03-08 20:27] LABS: Ethanol (ETOH) < 10 mg/dL
[2024-03-08] MEDS: levETIRAcetam 2,000 MG in SODIUM CHLORIDE 0.9% 100 ML 480 MG IV (20:47)
--- NOTE | 2024-03-08 20:53 | PC.NURSE ---
Pt resting quietly with eyes closed, resps even and not labored. No distress noted at this time. Pt rouses easily to verbal stimuli and currently reports no pain. Pt remains connected to cardiac, reps, blood pressure, and pulse ox monitors with alarms on and audible. Call light within reach. Sister remains at bedside.
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
== END 2024-03-08 22:03 | disposition short-term general hospital (02) ==
PROVIDERS: Emergency Provider Emergency Medicine; PCP Family Medicine
DX: I62.9 Nontraumatic intracranial hemorrhage, unspecified (principal); Q28.2 Arteriovenous malformation of cerebral vessels; I10 Essential (primary) hypertension; R29.701 NIHSS score 1; R51.9 Headache, unspecified; Z87.891 Personal history of nicotine dependence
CPT/HCPCS: 36415; 70450; 71045; 80053; 80320; 82550; 82962; 83735; 84484; 85025; 85610; 85730; 87635; 96361; 96365; 96375; 99285; 99291; J0780; J1100; J1200; J1885; J1953; J2405

== ENCOUNTER 2024-04-06 14:31 | Emergency (ER) | payer MEDICARE, MEDICAID, SELFPAY ==
[2024-04-06] VITALS (11 sets, daily range): BP systolic 138–151; BP diastolic 63–68; PULSE 80–85; RESP 18–25; TEMP 37.1; O2SAT 90–99; BMI 21.8
--- NOTE | 2024-04-06 14:53 | DI.CT.S_ITS ---
PROCEDURE: CT HEAD/BRAIN WO CON INDICATIONS: Increasing MEDINA and vomitting, recent brain bleed TECHNIQUE: Noncontrast 4.5 mm thick angled axial sections acquired from the foramen magnum to the vertex, with coronal and sagittal reformats. For radiation dose reduction, the following was used: automated exposure control, adjustment of mA and/or kV according to patient size. COMPARISON: [facility], CT, CT HEAD/BRAIN WO CON, 03/08/2024, 18:45. FINDINGS: Image quality: Diagnostic. CSF spaces: Basal cisterns are patent. No extra-axial fluid collections. Again seen hyperdensity within the ventricles which is decreased within the 3rd ventricle and right lateral ventricle when compared to prior. Brain: Redemonstration of ill-defined masslike prominence in the central portion of the left frontal lobe extending to the level the lateral ventricles. This is not well defined and measures approximately 3.9 x 2.7 cm (6/6). There is mass effect and mild midline shift measuring approximately 5 mm to the right. Again seen cerebral volume loss for age with resultant ventricular and sulcal prominence. There are periventricular and deep white matter chronic small vessel ischemic changes. Intracranial internal carotid artery atherosclerosis is present. Metallic coils are again seen near the tip of the basilar artery. Skull and face: Calvarium and visualized facial bones are intact, without suspicious lesions. Sinuses: Visualized sinuses and mastoids are clear. IMPRESSION: Redemonstration of ill-defined mass with areas of hyperdensity resulting in effacement of the left frontal horn as well as mild rightward midline shift. These are similar compared to prior. Intraventricular hemorrhage is redemonstrated and decreased compared to prior. Differential again includes vascular malformation versus neoplasm. Recommend brain MRI with and without contrast for further evaluation. Dictated by: Ted Carbajal M.D. on 04/06/2024 at 15:27 Approved by: Ted Carbajal M.D. on 04/06/2024 at 15:39
--- NOTE | 2024-04-06 14:55 | EKG_ITS ---
[address] [address] [address], [place] [address] Test Date: 2024-04-06 Pat Name: Marco Grullon Department: Room: Gender: Male Physiological Chemist: ZEENAT : 1955 Requested By: Order Number: [id number] Reading MD: Ron Troy Measurements Intervals [place] Rate: 82 P: 41 HI: 134 QRS: 50 QRSD: 72 T: 37 QT: 366 QTc: 427 Interpretive Statements Normal sinus rhythm Electronically Signed On 04-07-2024 23:45:13 PST by Ron Troy
[2024-04-06 15:21] LABS: Add Manual Diff / Slide Review NO; Basophils Absolute Auto 0 /uL (0-100); Basophils Percent Auto 0.4 % (0-2); Eosinophils Absolute Auto 100 /uL (0-450); Eosinophils Percent Auto 0.9 % (2-4); Hematocrit 41.7 % (41-53); Hemoglobin 13.8 g/dL (13.5-17.5); Lymphocytes Absolute Auto 1500 /uL (1100-4500); Lymphocytes Percent Auto 17.9 % (25-40); Mean Corpuscular HGB Conc 33.2 % (30-36); Mean Corpuscular Hemoglobin 30.8 PG (26-34); Mean Corpuscular Volume 92.9 fL (80-100); Monocytes Absolute Auto 500 /uL (0-900); Monocytes Percent Auto 5.8 % (3-14); Neutrophils Absolute Auto 6300 /uL (1500-7000); Platelet Count 231 X10^3/uL (150-400); Prothrombin Time 11.3 SECONDS (9.4-12.5); Red Blood Cell Count 4.48 X10^6/uL (4.5-5.9); Red Cell Distribution Width 14.2 % (11.6-14.8); White Blood Cell Count 8.4 X10^3/uL (4.5-11.0)
[2024-04-06 15:23] LABS: PTT Partial Thromboplastin Tim 32 SECONDS (25.1-36.5)
[2024-04-06 15:25] LABS: Alanine Aminotransferase 62 IU/L (<50); Albumin 4.5 g/dL (3.5-5.0); Albumin Globulin Ratio 1.3 (1.0-2.8); Alkaline Phosphatase 115 U/L (38-126); Aspartate Aminotransferase 35 IU/L (17-59); BUN Creatinine Ratio 13.6 (6-22); Bilirubin Total 0.4 mg/dL (0.2-1.3); Blood Urea Nitrogen 20 mg/dL (9-20); Calcium 9.7 mg/dL (8.4-10.2); Carbon Dioxide 29 mmol/L (22-32); Chloride 102 mmol/L (98-107); Estimated Glomerular Filt Rate 52 mL/min (>60); Globulin 3.6 g/dL (1.7-4.1); Glucose 119 mg/dL (80-110); HEMOLYSIS < 15 (0-50); Potassium 4.4 mmol/L (3.4-5.1); Sodium 140 mmol/L (137-145); Total Protein 8.1 g/dL (6.3-8.2)
--- NOTE | 2024-04-06 15:37 | ED.HA ---
HPI - Headache General Chief Complaint: Headache Stated Complaint: Poss brain bleed; pain back of head, vomit, dizzy Time Seen by Provider: 04/06/24 15:07 Mode of arrival: Ambulatory History of Present Illness HPI Narrative: Patient here with sister. Patient had vomiting during lunch today. Denies denies any headache. No numbness tingling or weakness. No confusion. Patient is status post AVM clipping/coiling March 11, 2024 at [facility]. Patient was seen here March 08 and transferred. He has been doing well. He had headache yesterday which resolved with Tylenol. Today, again he never had any headache today. He has no headache now. No fever chills. No cough cold or congestion. Patient is awake alert oriented x4. Fast exam is negative. Related Data Home Medications Medication Instructions Recorded Confirmed simvastatin 20 mg tablet 20 mg PO DAILY 12/15/23 12/22/23 tamsulosin 0.4 mg capsule 0.4 mg PO DAILY 12/15/23 12/22/23 Previous Rx's Medication Instructions Recorded meclizine 25 mg tablet 25 mg PO QID PRN dizziness #30 tabs 04/06/24 ondansetron 4 mg disintegrating 4 mg PO Q8H PRN nausea and 04/06/24 tablet vomiting #20 tabs Allergies Allergy/AdvReac Type Severity Reaction Status Date / Time No Known Drug Allergies Allergy Verified 12/22/23 15:25 Review of Systems Review of Systems Narrative: GENERAL: Negative chills, fatigue, malaise, fever, sweats. HEENT: Negative sinus pain, ear pain, sore throat RESPIRATORY: Negative dyspnea, cough CARDIOVASCULAR: Negative chest pain, palpitations GASTROINTESTINAL: Positive nausea, vomiting, negative abdominal pain : Negative dysuria, frequency, hematuria MUSCULOSKELETAL: Negative muscle or bony pain SKIN: Negative rash, skin lesions NEUROLOGIC: Negative weakness, numbness positive dizziness ROS Unobtainable: All systems reviewed & are unremarkable except as noted in HPI and below Patient History Medical History Stroke Coronary artery disease Hyperlipemia Hypertension Dementia Social History Smoking Status: Former smoker Smoking Status: Former smoker alcohol intake frequency: other Exam Narrative Exam Narrative: GENERAL: in no distress, not toxic not dyspneic HEAD: Normocephalic. EYES: Pupils equal round ENT: Mucous membranes moist. NECK: Trachea midline. CARDIOVASCULAR: Regular rate and rhythm RESPIRATORY: Clear to auscultation. Breath sounds equal bilaterally. No wheezes, rales, or rhonchi. GASTROINTESTINAL: Abdomen soft, non-tender EXTREMITIES: No gross deformities. BACK: No flank tenderness. NEURO: AOx4. 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 No nystagmus in the eyes, denies any dizziness at this time SKIN: Warm and dry PSYCH: Not anxious, is cooperative Initial Vital Signs Initial Vital Signs: Vital Signs Pulse Rate 85 04/06/24 14:38 Blood Pressure 142/67 H 04/06/24 14:38 Pulse Oximetry 94 04/06/24 14:38 Course Orders Ordered: Discontinued Medications Docusate Sodium (Docusate 100 Mg Capsule) 100 mg PO NOW ONE Stop: 04/06/24 16:46 Last Admin: 04/06/24 17:10 Dose: Not Given Documented By: PEREZ Vital Signs Vital signs: Vital Signs - 8 hr 04/06/24 14:38 04/06/24 14:38 04/06/24 14:43 Temperature 98.7 F Pulse Rate 85 80 Respiratory Rate 18 Blood Pressure 142/67 H 142/67 H Pulse Oximetry 94 99 Oxygen Delivery Method Room Air 04/06/24 14:51 04/06/24 14:51 04/06/24 15:06 Temperature Pulse Rate 82 84 Respiratory Rate 23 Blood Pressure 140/65 Pulse Oximetry 94 90 L Oxygen Delivery Method 04/06/24 15:30 04/06/24 16:00 04/06/24 16:18 Temperature Pulse Rate 82 82 82 Respiratory Rate 25 H 23 21 Blood Pressure Pulse Oximetry 93 95 97 Oxygen Delivery Method 04/06/24 16:18 Temperature Pulse Rate Respiratory Rate Blood Pressure 142/68 H Pulse Oximetry Oxygen Delivery Method MDM - Headache Lab Data 04/06/24 14:52 04/06/24 14:52 Labs: Lab Results 04/06/24 Range/Units 14:52 WBC 8.4 (4.5-11.0) X10^3/uL RBC 4.48 L (4.5-5.9) X10^6/uL Hgb 13.8 (13.5-17.5) g/dL Hct 41.7 (41-53) % MCV 92.9 (80-100) fL MCH 30.8 (26-34) PG MCHC 33.2 (30-36) % RDW 14.2 (11.6-14.8) % Plt Count 231 (150-400) X10^3/uL Neut % (Auto) 75.0 (50-75) % Lymph % (Auto) 17.9 L (25-40) % [place] % (Auto) 5.8 (3-14) % Eos % (Auto) 0.9 L (2-4) % Baso % (Auto) 0.4 (0-2) % Neut # (Auto) 6300 (8062-4714) /uL Lymph # (Auto) 1500 (4119-1066) /uL [place] # (Auto) 500 (0-900) /uL Eos # (Auto) 100 (0-450) /uL Baso # (Auto) 0 (0-100) /uL PT 11.3 (9.4-12.5) SECONDS INR 1.0 (0.9-1.3) APTT 32 (25.1-36.5) SECONDS Sodium 140 (137-145) mmol/L Potassium 4.4 (3.4-5.1) mmol/L Chloride 102 (98-107) mmol/L Carbon Dioxide 29 (22-32) mmol/L BUN 20 (9-20) mg/dL Creatinine 1.47 H (0.66-1.25) mg/dL Estimated GFR 52 L (>60) mL/min BUN/Creatinine Ratio 13.6 (6-22) Glucose 119 H (80-110) mg/dL Calcium 9.7 (8.4-10.2) mg/dL Total Bilirubin 0.4 (0.2-1.3) mg/dL AST 35 (17-59) IU/L ALT 62 H (<50) IU/L Alkaline Phosphatase 115 (38-126) U/L Total Protein 8.1 (6.3-8.2) g/dL Albumin 4.5 (3.5-5.0) g/dL Globulin 3.6 (1.7-4.1) g/dL Albumin/Globulin Ratio 1.3 (1.0-2.8) Imaging Data CT scan - head: Radiologist's Impression: [address] [address] [address] Scan Report Signed Patient: Marco Grullon MR#: [id number] : 1955 Acct:[id number] Age/Sex: 68 / M Date of Service: 04/06/24 Loc: ED Accession Number: [id number] Procedure: CT head/brain wo con Ordering Provider: Anjel Yeung MD PROCEDURE: CT HEAD/BRAIN WO CON INDICATIONS: Increasing MEDINA and vomitting, recent brain bleed TECHNIQUE: Noncontrast 4.5 mm thick angled axial sections acquired from the foramen magnum to the vertex, with coronal and sagittal reformats. For radiation dose reduction, the following was used: automated exposure control, adjustment of mA and/or kV according to patient size. COMPARISON: [facility], CT, CT HEAD/BRAIN WO CON, 03/08/2024, 18:45. FINDINGS: Image quality: Diagnostic. CSF spaces: Basal cisterns are patent. No extra-axial fluid collections. Again seen hyperdensity within the ventricles which is decreased within the 3rd ventricle and right lateral ventricle when compared to prior. Brain: Redemonstration of ill-defined masslike prominence in the central portion of the left frontal lobe extending to the level the lateral ventricles. This is not well defined and measures approximately 3.9 x 2.7 cm (6/6). There is mass effect and mild midline shift measuring approximately 5 mm to the right. Again seen cerebral volume loss for age with resultant ventricular and sulcal prominence. There are periventricular and deep white matter chronic small vessel ischemic changes. Intracranial internal carotid artery atherosclerosis is present. Metallic coils are again seen near the tip of the basilar artery. Skull and face: Calvarium and visualized facial bones are intact, without suspicious lesions. Sinuses: Visualized sinuses and mastoids are clear. IMPRESSION: Redemonstration of ill-defined mass with areas of hyperdensity resulting in effacement of the left frontal horn as well as mild rightward midline shift. These are similar compared to prior. Intraventricular hemorrhage is redemonstrated and decreased compared to prior. Differential again includes vascular malformation versus neoplasm. Recommend brain MRI with and without contrast for further evaluation. Dictated by: Ted Carbajal M.D. on 04/06/2024 at 15:27 Approved by: Ted Carbajal M.D. on 04/06/2024 at 15:39 [facility] Narrative Medical decision making narrative: Patient here with family, complains of right lower quadrant pain that started last night. Has had nausea but no vomiting. No testicular pain. No dysuria frequency hematuria. No medical problems according to family. No known injury. Patient does have McBurney point tenderness After history and exam CT head CBC CMP respiratory panel [facility] Medical records reviewed: ER visit here March 08, 2024 Differential considered: Includes but not limited to intracranial bleed viral gastritis Lab Test results independently reviewed as above. Pertinent findings: WBC 8.4 hemoglobin 13.8 sodium 140 potassium 4.4 BUN 20 creatinine 1.47 GFR 52 glucose 119 Independently reviewed EKG normal sinus rhythm normal EKG rate 82 Imaging studies independently reviewed: CT head similar ill-defined mass from previous CT, intraventricular hemorrhage is redemonstrated and decreased Consultations: 4:30 p.m.. Spoke with [facility] Neurosurgery Dr. Fox, he is reviewed CT imaging, nothing acute. No bleed. No transfer or follow up needed at this time. Treatments: None indicated at this time. Re-evaluations: 5:08 p.m. Reviewed results with patient and sister, reviewed with him my discussion with neurosurgery. At this time CT imaging is reassuring. They will need to follow up with primary care regarding the dizziness that has been off and on since his surgery. No new medications are indicated at this time. Patient only had 1 episode of vomiting today. They do not want viral respiratory panel swab for the nose. They do agree for prescription for meclizine and Zofran. They desire discharge home. Discussion: Appropriate for discharge home exam is reassuring. Return precautions reviewed with patient and sister. Neurosurgery was consulted. They dizziness may be due to the surgery, the vomiting today maybe a been related to the dizziness. Diagnosis: Nausea and vomiting Discharge Plan Departure Patient Disposition: Home Clinical Impression: Nausea & vomiting Qualifiers: Vomiting type: unspecified Qualified Code(s): R11.2 - Nausea with vomiting, unspecified Instructions: Vertigo, DI for Nausea -- Adult Activity Restrictions/Additional Instructions: Your exam and laboratory studies and imaging studies are reassuring. [facility] neurosurgery has reviewed your CT imaging. You may continue home medications. Please do continue Tylenol for any headaches and if not improving return to the emergency department. 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 See family doctor this week for re-evaluation. Return if worse if any questions or concerns Prescriptions: New ondansetron 4 mg tablet,disintegrating 4 mg PO Q8H PRN (Reason: nausea and vomiting) Qty: 20 0RF meclizine 25 mg tablet 25 mg PO QID PRN (Reason: dizziness) Qty: 30 0RF No Action simvastatin 20 mg tablet 20 mg PO DAILY tamsulosin 0.4 mg capsule 0.4 mg PO DAILY Referrals: Hemanth Segura MD [Primary Care Provider] - Stand Alone Forms: Patient Portal/API/Survey
== END 2024-04-06 17:23 | disposition home or self-care (01) ==
PROVIDERS: Emergency Provider Emergency Medicine; PCP Family Medicine
DX: R11.2 Nausea with vomiting, unspecified (principal)
CPT/HCPCS: 70450; 80053; 85025; 85610; 85730; 93005; 99282; 99284

== ENCOUNTER 2024-04-11 19:02 | Emergency (ER) | payer MEDICARE, MEDICAID, SELFPAY ==
[2024-04-11] VITALS (13 sets, daily range): BP systolic 115–141; BP diastolic 63–80; PULSE 96–121; RESP 18–23; TEMP 36.4; O2SAT 95–99; BMI 19.9
--- NOTE | 2024-04-11 | DI.CT.S_ITS ---
PROCEDURE: CT HEAD/BRAIN WO CON INDICATIONS: Syncope, hx avm TECHNIQUE: Noncontrast 4.5 mm thick angled axial sections acquired from the foramen magnum to the vertex, with coronal and sagittal reformats. For radiation dose reduction, the following was used: automated exposure control, adjustment of mA and/or kV according to patient size. COMPARISON: [facility], CT, CT HEAD/BRAIN WO CON, 04/06/2024, 14:58. FINDINGS: Image quality: Diagnostic CSF spaces: Intraventricular lesion with ventricular hemorrhage again seen, with calcifications. The hemorrhage is decreased, most notably in the left occipital horn. Volume: Vascular calcifications. Periventricular white matter disease is commonly seen with chronic microangiopathy. Volume loss is present. These findings are [id number] Brain: No new parenchymal hemorrhage. Craniofacial structures: Suprasellar postsurgical changes. IMPRESSION: Central brain lesion with calcifications and intraventricular hemorrhage again seen, with decreased intraventricular blood products compared to 04/06/2024. No increasing hydrocephalus. Dictated by: Miguelito Antonio M.D. on 04/11/2024 at 21:09 Approved by: Miguelito Antonio M.D. on 04/11/2024 at 21:14
--- NOTE | 2024-04-11 19:18 | DI.RAD.S_ITS ---
PROCEDURE: XR CHEST 1V INDICATIONS: chest pain TECHNIQUE: One view of the chest was acquired. COMPARISON: [facility], CR, XR CHEST 1V, 03/08/2024, 19:40. FINDINGS: Surgical changes and devices: None. Lungs and pleura: Lungs are clear. No pleural effusions or pneumothorax. Mediastinum: Mediastinal contours appear normal. Heart size is normal. Bones and chest wall: No suspicious bony lesions. Overlying soft tissues appear unremarkable. IMPRESSION: No acute cardiopulmonary pathology. Dictated by: Alex Frederick M.D. on 04/11/2024 at 19:37 Approved by: Alex Frederick M.D. on 04/11/2024 at 19:37
--- NOTE | 2024-04-11 19:18 | EKG_ITS ---
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
[2024-04-11 19:36] LABS: INR 1.1 (0.9-1.3); Prothrombin Time 11.9 SECONDS (9.4-12.5)
[2024-04-11 19:37] LABS: Add Manual Diff / Slide Review NO; Basophils Absolute Auto 100 /uL (0-100); Basophils Percent Auto 0.6 % (0-2); Eosinophils Absolute Auto 200 /uL (0-450); Hemoglobin 11.3 g/dL (13.5-17.5); Lymphocytes Absolute Auto 2400 /uL (1100-4500); Mean Corpuscular HGB Conc 33.2 % (30-36); Mean Corpuscular Volume 93.3 fL (80-100); Monocytes Absolute Auto 800 /uL (0-900); Monocytes Percent Auto 6.7 % (3-14); Neutrophils Absolute Auto 8500 /uL (1500-7000); Neutrophils Percent Auto 70.7 % (50-75); Platelet Count 222 X10^3/uL (150-400); Red Blood Cell Count 3.65 X10^6/uL (4.5-5.9); Red Cell Distribution Width 13.9 % (11.6-14.8); White Blood Cell Count 12.1 X10^3/uL (4.5-11.0)
[2024-04-11 19:38] LABS: PTT Partial Thromboplastin Tim 21 SECONDS (25.1-36.5)
[2024-04-11 19:46] LABS: Alanine Aminotransferase 62 IU/L (<50); Albumin 3.8 g/dL (3.5-5.0); Albumin Globulin Ratio 1.4 (1.0-2.8); Alkaline Phosphatase 82 U/L (38-126); Aspartate Aminotransferase 45 IU/L (17-59); BUN Creatinine Ratio 33.9 (6-22); Bilirubin Total 0.4 mg/dL (0.2-1.3); Blood Urea Nitrogen 42 mg/dL (9-20); Calcium 9.2 mg/dL (8.4-10.2); Carbon Dioxide 27 mmol/L (22-32); Chloride 103 mmol/L (98-107); Creatine Kinase 35 U/L (55-170); Estimated Glomerular Filt Rate > 60 mL/min (>60); Globulin 2.7 g/dL (1.7-4.1); Glucose 143 mg/dL (80-110); HEMOLYSIS 26 (0-50); Lipase 93 U/L (23-300); Potassium 4.5 mmol/L (3.4-5.1); Sodium 135 mmol/L (137-145); Total Protein 6.5 g/dL (6.3-8.2)
--- NOTE | 2024-04-11 19:47 | ED.SYNCOPE ---
HPI - Syncope General Chief Complaint: Syncope Stated Complaint: N/V Time Seen by Provider: 04/11/24 19:44 Source: EMS Mode of arrival: EMS Limitations: altered mental status History of Present Illness HPI narrative: Patient is a 68year-old male with a known AVMs with multiple ruptured most recently in 2016 presented to the ED March 09 with a thunderclap headache and altered mental status. CT showed a large intracranial hemorrhage with intraventricular extension transferred to [facility] for neurosurgical evaluation. Underwent angiogram coiling of dysplastic aneurysm by Dr. Carrizales was recommended to skilled rehab. Patient presents today with a near syncopal episode with nausea vomiting and some epigastric pain. Sister at bedside reports that they were watching the super bowl he was seen evaluated here April 06 for some vertigo had imaging done at that time was given meclizine. Reports that meclizine was not helpful actually made things worse. He has had some vertigo-like episodes since but not that bad. He went to get up and got very nauseous sister says he has some difficulty speaking vomited some dark brown stuff. Took him awhile to come out of it. He now has no significant headache no new weakness. No ongoing abdominal pain no chest pain. Overall appears well nontoxic. Related Data Home Medications Medication Instructions Recorded Confirmed simvastatin 20 mg tablet 20 mg PO DAILY 12/15/23 12/22/23 tamsulosin 0.4 mg capsule 0.4 mg PO DAILY 12/15/23 12/22/23 Previous Rx's Medication Instructions Recorded meclizine 25 mg tablet 25 mg PO QID PRN dizziness #30 tabs 04/06/24 ondansetron 4 mg disintegrating 4 mg PO Q8H PRN nausea and 04/06/24 tablet vomiting #20 tabs Allergies Allergy/AdvReac Type Severity Reaction Status Date / Time No Known Drug Allergies Allergy Verified 04/11/24 19:13 Patient History Medical History Stroke Coronary artery disease Hyperlipemia Hypertension Dementia Social History Smoking Status: Former smoker Smoking Status: Former smoker alcohol intake frequency: other Exam Initial Vital Signs Initial Vital Signs: Vital Signs Pulse Rate 121 H 04/11/24 19:06 Pulse Oximetry 98 04/11/24 19:06 GENERAL: Alert pleasant 60-year-old male and in no acute distress. HEENT: Head atraumatic,EOMI, pupils reactive, face symmetric, moist mucous membranes CARDIOVASCULAR: Regular rate and rhythm without murmurs, rubs or gallops. RESPIRATORY: Breath sounds equal bilaterally, no wheezes rales or rhonchi. ABDOMEN: Soft, nontender. Normoactive bowel sounds all 4 quadrants. No guarding or rebound. EXTREMITIES: Normal range of motion, no clubbing or edema. Neurovascularly intact NEUROLOGICAL: Alert and oriented x4.Normal gait and speech. Cranial nerves II through XII grossly intact. Good jtxugh-vi-oitu, good jyxw-gv-nebv, strength equal bilaterally, no dysarthria or aphasia, sensation in tact to soft touch bilaterally, no visual changes, no facial droop SKIN: Warm, dry, no laceration, no petechiae, no rashes or lesions. Course Orders Ordered: ED Orders 04/11/24 19:15 Complete Blood Count AUTO DIFF Stat Comprehensive Metabolic Panel Stat Lipase Stat Magnesium Stat NT-proBNP (BNP-Adult 18+) Stat PTT Partial Thromboplastin Juan Stat Prothrombin Time INR Stat Troponin & CK Cardiac Panel Stat 04/11/24 19:18 XR chest 1V Stat EKG-12 Lead Stat 04/11/24 20:01 CT abdomen pelvis w con Stat CT angio head and neck Stat 04/11/24 21:04 Urine Microscopic Stat 04/11/24 21:32 Hemoglobin and Hematocrit Stat Lactate (Lactic Acid) Stat Discontinued Medications Sodium Chloride (Normal Saline 0.9%) 1,000 mls @ 1,000 mls/hr IV BOLUS ONE Stop: 04/11/24 23:03 Last Infusion: 04/11/24 23:28 Dose: Infused Documented By: Admin: 04/11/24 22:12 Dose: 1,000 mls/hr Documented By: Pantoprazole Sodium (Pantoprazole 40 Mg Vial) 80 mg IV NOW ONE Stop: 04/11/24 22:06 Last Admin: 04/11/24 22:12 Dose: 80 mg Documented By: Vital Signs Vital signs: Vital Signs - 8 hr 04/11/24 19:06 04/11/24 19:07 04/11/24 19:07 Temperature Pulse Rate 121 H Respiratory Rate Blood Pressure 116/69 Pulse Oximetry 98 98 Oxygen Delivery Method 04/11/24 19:10 04/11/24 19:30 04/11/24 19:30 Temperature 97.5 F L Pulse Rate 110 H 112 H Respiratory Rate 18 Blood Pressure 116/69 120/73 Pulse Oximetry 99 97 Oxygen Delivery Method Room Air 04/11/24 20:00 04/11/24 20:00 04/11/24 20:42 Temperature Pulse Rate 109 H 98 H Respiratory Rate Blood Pressure 128/80 Pulse Oximetry 97 97 Oxygen Delivery Method 04/11/24 20:43 04/11/24 20:43 04/11/24 21:03 Temperature Pulse Rate 99 H 108 H Respiratory Rate 23 Blood Pressure 132/72 Pulse Oximetry 97 98 Oxygen Delivery Method 04/11/24 21:03 04/11/24 21:30 04/11/24 22:00 Temperature Pulse Rate 106 H 109 H Respiratory Rate 23 Blood Pressure 137/65 Pulse Oximetry 95 95 Oxygen Delivery Method 04/11/24 22:00 04/11/24 22:30 04/11/24 22:30 Temperature Pulse Rate 101 H Respiratory Rate 20 Blood Pressure 141/74 H 115/68 Pulse Oximetry 96 Oxygen Delivery Method 04/11/24 23:00 04/11/24 23:01 04/11/24 23:01 Temperature Pulse Rate 96 H 96 H Respiratory Rate 20 Blood Pressure 129/63 Pulse Oximetry 98 97 Oxygen Delivery Method MDM - Syncope Lab Data 04/11/24 21:32 04/11/24 19:15 Labs: Lab Results 04/11/24 04/11/24 04/11/24 Range/Units 19:15 21:04 21:32 WBC 12.1 H (4.5-11.0) X10^3/uL RBC 3.65 L (4.5-5.9) X10^6/uL Hgb 11.3 L 10.8 L (13.5-17.5) g/dL Hct 34.0 L 32.2 L (41-53) % MCV 93.3 (80-100) fL MCH 31.0 (26-34) PG MCHC 33.2 (30-36) % RDW 13.9 (11.6-14.8) % Plt Count 222 (150-400) X10^3/uL Neut % (Auto) 70.7 (50-75) % Lymph % (Auto) 20.0 L (25-40) % [place] % (Auto) 6.7 (3-14) % Eos % (Auto) 2.0 (2-4) % Baso % (Auto) 0.6 (0-2) % Neut # (Auto) 8500 H (6375-6289) /uL Lymph # (Auto) 2400 (0178-6217) /uL Titus # (Auto) 800 (0-900) /uL Eos # (Auto) 200 (0-450) /uL Baso # (Auto) 100 (0-100) /uL PT 11.9 (9.4-12.5) SECONDS INR 1.1 (0.9-1.3) APTT 21 L (25.1-36.5) SECONDS Sodium 135 L (137-145) mmol/L Potassium 4.5 (3.4-5.1) mmol/L Chloride 103 (98-107) mmol/L Carbon Dioxide 27 (22-32) mmol/L BUN 42 H (9-20) mg/dL Creatinine 1.24 (0.66-1.25) mg/dL Estimated GFR > 60 (>60) mL/min BUN/Creatinine Ratio 33.9 H (6-22) Glucose 143 H (80-110) mg/dL Lactate 1.1 (0.7-2.1) mmol/L Calcium 9.2 (8.4-10.2) mg/dL Magnesium 2.0 (1.6-2.3) mg/dL Total Bilirubin 0.4 (0.2-1.3) mg/dL AST 45 (17-59) IU/L ALT 62 H (<50) IU/L Alkaline Phosphatase 82 (38-126) U/L Total Creatine Kinase 35 L (55-170) U/L Troponin I < 0.012 (0.01-0.034) ng/mL NT-Pro-B Natriuret Pep < 20 (<125) pg/mL Total Protein 6.5 (6.3-8.2) g/dL Albumin 3.8 (3.5-5.0) g/dL Globulin 2.7 (1.7-4.1) g/dL Albumin/Globulin Ratio 1.4 (1.0-2.8) Lipase 93 (23-300) U/L Urine RBC None seen (0-5/HPF) Urine WBC None seen (0-5/HPF) Ur Squamous Epith Cells None seen (0-5/HPF) Urine Bacteria None seen (None) Ur Culture Indicated? Cult not indicated Vol Urine Centrifuged 10ml (spun) Point of Care Testing Stool Occult Blood Negative Imaging Data CT scan - abdomen/pelvis: Radiologist's Impression: PROCEDURE: CT ABDOMEN PELVIS W CON INDICATIONS: vomitng syncope TECHNIQUE: After the administration of intravenous contrast, axial sections acquired from the lung bases to the pubic symphysis. Coronal and sagittal reformats were performed. For radiation dose reduction, the following was used: automated exposure control, adjustment of mA and/or kV according to patient size. COMPARISON: [facility], CT, CT ABDOMEN PELVIS W CON, 12/16/2023, 10:33. FINDINGS: Image quality: Diagnostic Lower chest: Basal atelectasis/scarring. Coronary calcifications. Liver: Probable hepatic steatosis. Subcentimeter lesion in the periphery of segment 5 is too small to characterize, probably a cyst or hemangioma Gallbladder and biliary system: Unremarkable, nondilated Pancreas: No ductal dilation. There is a questionable hypervascular lesion at the uncinate process measuring 1 cm (53). Spleen: Nonenlarged Adrenals: No discrete nodules Kidneys: No solid mass or hydronephrosis. Vessels and lymph nodes: The main portal vein appears patent. No abdominal aortic aneurysm. Moderate atherosclerotic disease with calcified and noncalcified plaque with moderate narrowing in the infrarenal aorta and common iliac vessels again seen. Focal high-grade involvement is seen in the right common iliac artery. No pathologic lymph nodes by size criteria Bowel and peritoneum: No evidence of small bowel obstruction. No pathologic ascites. No drainable abscess. Colonic diverticula are seen. The appendix is nondilated. Body wall: Unremarkable Pelvis: Bladder is unremarkable. Enlarged heterogeneous prostate in seen, nonspecific appearance on CT. Bones: There are degenerative changes. Sacroiliac ankylosis. Minimally increased height loss of T12. IMPRESSION: No bowel obstruction. No significant acute bowel inflammation. Slightly increased T12 height loss. Questionable hypervascular uncinate process pancreatic lesion measuring 1 cm, consider nonurgent pancreas MR follow-up. Probable hepatic steatosis. Heterogeneously enhancing hypervascular prostate, nonspecific. Correlate PSA and possible MRI if suspicious. 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 Other findings above. Dictated by: Miguelito Antonio M.D. on 04/11/2024 at 21:38 CTA - brain/neck: Radiologist's Impression: PROCEDURE: CT ANGIO HEAD AND NECK INDICATIONS: syncope hx avm and bleed TECHNIQUE: After the administration of intravenous contrast, 1 mm thick sections acquired from the aortic arch through the [place] of [place]. 3-dimensional errvexm-jlitrojze-zkubsjshpv (MIP) and/or volume rendering reformats were acquired of the central intracranial vasculature and neck separately. For radiation dose reduction, the following was used: automated exposure control, adjustment of mA and/or kV according to patient size. COMPARISON: None. 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 The tangle of vessels is mostly seen in the left lateral ventricle. Dominant draining vein is seen into the vein of Ming into the straight sinus. Posterior circulation: Dominance: Equal Vertebral arteries: Mild intracranial irregularities Basilar artery: Not well assessed distally due to metallic artifact. The tip is in close proximity to the AVM. PComms: Not well assessed due to metallic artifact academic support coordinator: Probably patent, but difficult to assess due to metallic artifact and surrounding AVM. NECK ANGIOGRAPHY: Aortic arch and subclavian arteries: Mild calcifications. Moderate left subclavian calcifications CCAs: Patent ICA origins (by NASCET criteria): Mild bilateral calcifications without significant narrowing ICAs: No stenosis, occlusion or aneurysm. ECAs: Origins are patent. Vertebral arteries: Unremarkable Soft tissues: No significant mass, aneurysm, or lymphadenopathy Lung apices: Emphysematous changes Bones: There are degenerative changes. IMPRESSION: Central brain arteriovenous malformation. There is a coil centrally, which is in close proximity to the academic support coordinator and basilar tip. This area is not well assessed due to artifact. Dominant draining vein is seen into the vein of Ming and straight sinus. Arterial filling of the venous structures indicates patency of the vascular malformation. Consider neurosurgical follow-up. There is no large vessel occlusion elsewhere. Mild areas of atherosclerosis is seen as described above. Intracranial vascular irregularity seen in the vertebral arteries. Any quantitative measurements of stenosis were performed using NASCET criteria. Dictated by: Miguelito Antonio M.D. on 04/11/2024 at 21:14 Approved by: Miguelito Antonio M.D. on 04/11/2024 at 21:22 Chest x-ray: Radiologist's Impression: PROCEDURE: XR CHEST 1V INDICATIONS: chest pain TECHNIQUE: One view of the chest was acquired. COMPARISON: [facility], CR, XR CHEST 1V, 03/08/2024, 19:40. FINDINGS: Surgical changes and devices: None. Lungs and pleura: Lungs are clear. No pleural effusions or pneumothorax. Mediastinum: Mediastinal contours appear normal. Heart size is normal. Bones and chest wall: No suspicious bony lesions. Overlying soft tissues appear unremarkable. IMPRESSION: No acute cardiopulmonary pathology. Dictated by: Alex Frederick M.D. on 04/11/2024 at 19:37 Approved by: Alex Frederick M.D. on 04/11/2024 at 19:37 ECG Data Attestation: I personally reviewed and interpreted this ECG as follows: Prior ECG tracings: available for review Interpretation: Normal sinus rhythm rate 113 [place] interval 112 QRS [address] changes MDM Narrative Medical decision making narrative: [facility] CC: Nausea vomiting near syncope Complicating co-morbidities: Intracranial AVMs with recent intracranial hemorrhage Corroborating data: Data collected from: Medical records reviewed: ED visits reviewed Differential considered: Intracranial a bridge electrolyte abnormality dehydration anemia GI bleed Exam documented above, pertinent findings include: Alert well-appearing 60-year-old male guaiac negative abdomen soft nontender no focal deficits Lab Test results independently reviewed as above. Pertinent findings: WBC 12 hemoglobin 11 0.3/34.0 previously 13.8/41.7 repeat 10.8/32.2 no IV fluids given BUN 42 creatinine 1.24 Electrolytes within normal limits Lactate 1.1 Troponin negative AST ALT alk-phos within normal limits Independently reviewed EKG as above sinus tachycardia rate 113 Imaging studies independently reviewed: CT angio head and neck coil in place patent no active bleeding CT abdomen pelvis does show a vascular lesion on the pancreas of 1 cm no active bleeding or bowel obstruction Consultations: Treatments: IV fluids Protonix 80 Re-evaluations: Discussion: Patient 60-year-old male with significant history of AVM intracranial hemorrhage not on any kind of antiplatelet or anticoagulation medication presenting today with an episode of vomiting and a near syncopal episode. He did not pass out he was no further headache. Use guaiac negative but does have a drop in hemoglobin without IV fluids and does have an elevated BUN creatinine ratio. Possible GI bleed versus dehydration. he is also persistently tachycardic heart rate between 101-110. When he was here on April 06 he had a heart rate in the 80s. He was given a L of fluids heart rate does improve to below 100, he is also given Protonix. He appears nontoxic and appears well, abdomen is soft nontender CT does not show any evidence of active bleeding. At this time I did discuss with patient and sister that he should have repeat blood work done later this week also strict return precautions. Discharge Plan Departure Patient Disposition: Home Clinical Impression: Anemia, Lesion of pancreas Instructions: Anemia Activity Restrictions/Additional Instructions: *You have been diagnosed with anemia *What to do: Blood level was found to be a little bit lower today than it was previously. I do recommend that you have a hemoglobin rechecked later this week with your primary care provider. You also were found to have a 1 cm pancreatic lesion. Seem to be vascular may need an outpatient MRI of your pancreas please talk to your primary about this. *Continue to take medications as directed *Follow up with your primary care provider in 2-3 days or call [phone] *Return to ER if you should have recurrent episode of passing out pooping black stool persistent vomiting nausea or any new, worsening or concerning symptoms Prescriptions: No Action simvastatin 20 mg tablet 20 mg PO DAILY tamsulosin 0.4 mg capsule 0.4 mg PO DAILY ondansetron 4 mg tablet,disintegrating 4 mg PO Q8H PRN (Reason: nausea and vomiting) Qty: 20 0RF meclizine 25 mg tablet 25 mg PO QID PRN (Reason: dizziness) Qty: 30 0RF Referrals: Hemanth Segura MD [Primary Care Provider] - Stand Alone Forms: Patient Portal/API/Survey
[2024-04-11 19:57] LABS: NT-proBNP (BNP-Adult 18+) < 20 pg/mL (<125); Troponin I < 0.012 ng/mL (0.01-0.034)
--- NOTE | 2024-04-11 20:01 | DI.CT.S_ITS ---
PROCEDURE: CT ANGIO HEAD AND NECK INDICATIONS: syncope hx avm and bleed TECHNIQUE: After the administration of intravenous contrast, 1 mm thick sections acquired from the aortic arch through the [place] of [place]. 3-dimensional unmnivx-nfhrasein-jadnxftsou (MIP) and/or volume rendering reformats were acquired of the central intracranial vasculature and neck separately. For radiation dose reduction, the following was used: automated exposure control, adjustment of mA and/or kV according to patient size. COMPARISON: None. 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 The tangle of vessels is mostly seen in the left lateral ventricle. Dominant draining vein is seen into the vein of Ming into the straight sinus. Posterior circulation: Dominance: Equal Vertebral arteries: Mild intracranial irregularities Basilar artery: Not well assessed distally due to metallic artifact. The tip is in close proximity to the AVM. PComms: Not well assessed due to metallic artifact director plans: Probably patent, but difficult to assess due to metallic artifact and surrounding AVM. NECK ANGIOGRAPHY: Aortic arch and subclavian arteries: Mild calcifications. Moderate left subclavian calcifications CCAs: Patent ICA origins (by NASCET criteria): Mild bilateral calcifications without significant narrowing ICAs: No stenosis, occlusion or aneurysm. ECAs: Origins are patent. Vertebral arteries: Unremarkable Soft tissues: No significant mass, aneurysm, or lymphadenopathy Lung apices: Emphysematous changes Bones: There are degenerative changes. IMPRESSION: Central brain arteriovenous malformation. There is a coil centrally, which is in close proximity to the director plans and basilar tip. This area is not well assessed due to artifact. Dominant draining vein is seen into the vein of Ming and straight sinus. Arterial filling of the venous structures indicates patency of the vascular malformation. Consider neurosurgical follow-up. There is no large vessel occlusion elsewhere. Mild areas of atherosclerosis is seen as described above. Intracranial vascular irregularity seen in the vertebral arteries. Any quantitative measurements of stenosis were performed using NASCET criteria. Dictated by: Miguelito Antonio M.D. on 04/11/2024 at 21:14 Approved by: Miguelito Antonio M.D. on 04/11/2024 at 21:22
--- NOTE | 2024-04-11 20:01 | DI.CT.S_ITS ---
PROCEDURE: CT ABDOMEN PELVIS W CON INDICATIONS: vomitng syncope TECHNIQUE: After the administration of intravenous contrast, axial sections acquired from the lung bases to the pubic symphysis. Coronal and sagittal reformats were performed. For radiation dose reduction, the following was used: automated exposure control, adjustment of mA and/or kV according to patient size. COMPARISON: [facility], CT, CT ABDOMEN PELVIS W CON, 12/16/2023, 10:33. FINDINGS: Image quality: Diagnostic Lower chest: Basal atelectasis/scarring. Coronary calcifications. Liver: Probable hepatic steatosis. Subcentimeter lesion in the periphery of segment 5 is too small to characterize, probably a cyst or hemangioma Gallbladder and biliary system: Unremarkable, nondilated Pancreas: No ductal dilation. There is a questionable hypervascular lesion at the uncinate process measuring 1 cm (4/53). Spleen: Nonenlarged Adrenals: No discrete nodules Kidneys: No solid mass or hydronephrosis. Vessels and lymph nodes: The main portal vein appears patent. No abdominal aortic aneurysm. Moderate atherosclerotic disease with calcified and noncalcified plaque with moderate narrowing in the infrarenal aorta and common iliac vessels again seen. Focal high-grade involvement is seen in the right common iliac artery. No pathologic lymph nodes by size criteria Bowel and peritoneum: No evidence of small bowel obstruction. No pathologic ascites. No drainable abscess. Colonic diverticula are seen. The appendix is nondilated. Body wall: Unremarkable Pelvis: Bladder is unremarkable. Enlarged heterogeneous prostate in seen, nonspecific appearance on CT. Bones: There are degenerative changes. Sacroiliac ankylosis. Minimally increased height loss of T12. IMPRESSION: No bowel obstruction. No significant acute bowel inflammation. Slightly increased T12 height loss. Questionable hypervascular uncinate process pancreatic lesion measuring 1 cm, consider nonurgent pancreas MR follow-up. Probable hepatic steatosis. Heterogeneously enhancing hypervascular prostate, nonspecific. Correlate PSA and possible MRI if suspicious. 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 Other findings above. Dictated by: Miguelito Antonio M.D. on 04/11/2024 at 21:38 Approved by: Miguelito Antonio M.D. on 04/11/2024 at 21:45
[2024-04-11 21:24] LABS: Bacteria Urine None Seen; Culture Indicated Urine Cult Not Indicated; RBC Urine None Seen (0-5/HPF); Squamous Epithelial Cell Urine None Seen (0-5/HPF); Urine Volume 10mL (spun); WBC Urine None Seen (0-5/HPF)
[2024-04-11 21:38] LABS: Hematocrit 32.2 % (41-53); Hemoglobin 10.8 g/dL (13.5-17.5)
[2024-04-11] MEDS: SODIUM CHLORIDE 0.9% 1,000 ML 1000 ML IV (22:12)
[2024-04-11] MEDS: PANTOPRAZOLE 40 MG VIAL 80 MG IV (22:12)
[2024-04-11 22:35] LABS: Lactate (Lactic Acid) 1.1 mmol/L (0.7-2.1)
== END 2024-04-11 23:30 | disposition home or self-care (01) ==
PROVIDERS: Emergency Provider Emergency Medicine; PCP Family Medicine
DX: D64.9 Anemia, unspecified (principal); K86.89 Other specified diseases of pancreas; R00.0 Tachycardia, unspecified; R11.2 Nausea with vomiting, unspecified; Q27.30 Arteriovenous malformation, site unspecified; R10.13 Epigastric pain; R55 Syncope and collapse; Z86.79 Personal history of other diseases of the circulatory system
CPT/HCPCS: 36415; 70450; 70496; 70498; 71045; 74177; 80053; 81015; 82272; 82550; 83605; 83690; 83735; 83880; 84484; 85014; 85018; 85025; 85610; 85730; 93005; 93010; 96361; 96374; 99284; 99285; J2470; Q9967

== ENCOUNTER 2024-04-12 18:46 | Emergency (ER) | payer MEDICARE, MEDICAID, SELFPAY ==
[2024-04-12] VITALS (12 sets, daily range): BP systolic 80–115; BP diastolic 48–66; PULSE 99–121; RESP 10–20; TEMP 36.6–36.8; O2SAT 96–100; BMI 21.2
[2024-04-12] MEDS: ONDANSETRON 4 MG/2 ML INJ IV (19:41)
[2024-04-12 20:09] LABS: Add Manual Diff / Slide Review NO; Basophils Absolute Auto 100 /uL (0-100); Basophils Percent Auto 0.7 % (0-2); Eosinophils Absolute Auto 100 /uL (0-450); Eosinophils Percent Auto 0.4 % (2-4); Hematocrit 28.6 % (41-53); Hemoglobin 9.6 g/dL (13.5-17.5); Lymphocytes Absolute Auto 2600 /uL (1100-4500); Lymphocytes Percent Auto 20.1 % (25-40); Mean Corpuscular HGB Conc 33.6 % (30-36); Mean Corpuscular Hemoglobin 31.6 PG (26-34); Monocytes Absolute Auto 600 /uL (0-900); Monocytes Percent Auto 4.3 % (3-14); Neutrophils Absolute Auto 9700 /uL (1500-7000); Neutrophils Percent Auto 74.5 % (50-75); Platelet Count 230 X10^3/uL (150-400); Red Blood Cell Count 3.05 X10^6/uL (4.5-5.9); Red Cell Distribution Width 14.2 % (11.6-14.8)
[2024-04-12 20:15] LABS: INR 1.1 (0.9-1.3); Prothrombin Time 12.2 SECONDS (9.4-12.5)
[2024-04-12 20:18] LABS: PTT Partial Thromboplastin Tim 25 SECONDS (25.1-36.5)
[2024-04-12 20:21] LABS: Lactate (Lactic Acid) 1.7 mmol/L (0.7-2.1)
[2024-04-12 20:22] LABS: Alanine Aminotransferase 50 IU/L (<50); Albumin 3.8 g/dL (3.5-5.0); Albumin Globulin Ratio 1.4 (1.0-2.8); Alkaline Phosphatase 84 U/L (38-126); Aspartate Aminotransferase 29 IU/L (17-59); BUN Creatinine Ratio 42.9 (6-22); Bilirubin Total 0.4 mg/dL (0.2-1.3); Blood Urea Nitrogen 57 mg/dL (9-20); Calcium 8.9 mg/dL (8.4-10.2); Carbon Dioxide 25 mmol/L (22-32); Chloride 103 mmol/L (98-107); Estimated Glomerular Filt Rate 58 mL/min (>60); Globulin 2.7 g/dL (1.7-4.1); Glucose 134 mg/dL (80-110); HEMOLYSIS 17 (0-50); Potassium 4.7 mmol/L (3.4-5.1); Sodium 136 mmol/L (137-145); Total Protein 6.5 g/dL (6.3-8.2)
[2024-04-12 20:34] LABS: Bacteria Urine Occasional (0-1); Ictotest Urine Negative (Negative); RBC Urine 0-1/HPF (0-5/HPF); Squamous Epithelial Cell Urine 0-1 /HPF (0-5/HPF); Urine Volume 10mL (spun); WBC Urine 0-1/HPF (0-5/HPF)
[2024-04-12 20:35] LABS: Culture Indicated Urine Cult Not Indicated; Mucus Urine 3+ (Negative)
--- NOTE | 2024-04-12 22:05 | PC.NURSE ---
Informed that pt BP in waiting room was low, see chart, by CREAM DUMPER. Pt immediately brought back to room. Pt pale, responses slow to verbal ques. Assited pt to bed, supine position. Pt color looked better, BP increased and pt now talking with staff without issue. Pt denies pain. Provider informed of pt status change.
--- NOTE | 2024-04-12 22:06 | EKG_ITS ---
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
--- NOTE | 2024-04-12 22:27 | DI.CT.S_ITS ---
PROCEDURE: CT ANGIO ABD/PEL GI BLEED INDICATIONS: GI Bleed TECHNIQUE: After the administration of intravenous contrast, 2.5 mm thick sections acquired from the diaphragm to the symphysis. 10 mm maximum-intensity projection (MIP) reformats were then acquired. For radiation dose reduction, the following was used: automated exposure control. COMPARISON: [facility], CT, CT ABDOMEN PELVIS W CON, 04/11/2024, 20:18. FINDINGS: Image quality: Diagnostic Lower chest: Basal atelectasis/scarring. Liver: Subcentimeter liver lesion in the right lobe too small to characterize, usually a cyst or hemangioma. Gallbladder and biliary system: Excreted contrast versus sludge. No biliary ductal dilation Pancreas: No ductal dilation or discrete hypervascular lesion identified. Spleen: Nonenlarged Adrenals: No discrete nodules Kidneys: Left renal cysts. No hydronephrosis. No solid renal mass Vessels and lymph nodes: Ectatic infrarenal abdominal aorta measures up to 2.4 cm, with calcified and noncalcified irregular plaque. More high-grade narrowing is seen in the right common iliac artery. The major mesenteric vessels and renal arteries The main portal vein appears patent. No occlusive SMV thrombus. No pathologic lymph nodes by size criteria. appear patent, with moderate plaque, particularly at the celiac origin. Bowel and peritoneum: Colonic diverticula are seen throughout the colon No bowel obstruction. No pathologic ascites. No hemoperitoneum. Normal diameter appendix. There is a linear hypervascular region in the left portion of the lower rectum (5/245) There is no intrinsic density on the corresponding noncontrast images. Body wall: Unremarkable Pelvis: Bladder is unremarkable. Heterogeneously enhancing enlarged prostate. Bones: No acute or suspicious osseous finding. T12 height loss again seen. IMPRESSION: Colonic diverticula are seen. A linear hyperdensity in particular is seen in the lower rectum on the left, not definitely present on noncontrast images. Differential includes hemorrhoidal vessels. In the setting of GI bleed, direct visualization is suggested. Heterogeneously enhancing enlarged prostate, correlate PSA and possible MRI if suspicious. 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 Other findings above. Dictated by: Miguelito Antonio M.D. on 04/12/2024 at 23:08 Approved by: Miguelito Antonio M.D. on 04/12/2024 at 23:18
--- NOTE | 2024-04-12 22:31 | ED_ITS ---
HPI - GI Bleed <Roxanne Tavarez DO - Last Filed: 04/14/24 02:22> General Chief complaint: GI Bleed Stated complaint: return from 04/11/24 Time Seen by Provider: 04/12/24 22:23 Source: family Mode of arrival: Wheelchair History of Present Illness HPI Narrative: Patient is a 68-year-old male with known AVMs with prior intracranial hemorrhage presenting again today for weakness vomiting. I saw him yesterday he was found to be mildly anemic but was guaiac negative. Reports that he went home he would further episodes of coffee-ground emesis and sister reports blackened stool. He was waiting in the waiting room became hypotensive tachycardic. Really vomit out there. Does not endorse bright red blood. Feels generally weak but is awake and alert. No significant abdominal pain. Related Data Home Medications Medication Instructions Recorded Confirmed simvastatin 20 mg tablet 20 mg PO DAILY 12/15/23 12/22/23 tamsulosin 0.4 mg capsule 0.4 mg PO DAILY 12/15/23 12/22/23 Previous Rx's Medication Instructions Recorded meclizine 25 mg tablet 25 mg PO QID PRN dizziness #30 tabs 04/06/24 ondansetron 4 mg disintegrating 4 mg PO Q8H PRN nausea and 04/06/24 tablet vomiting #20 tabs Allergies Allergy/AdvReac Type Severity Reaction Status Date / Time No Known Drug Allergies Allergy Verified 04/11/24 19:13 Patient History <Roxanne Tavarez DO - Last Filed: 04/14/24 02:22> Medical History Stroke Coronary artery disease Hyperlipemia Hypertension Dementia Social History Smoking Status: Former smoker Smoking Status: Former smoker alcohol intake frequency: other Exam <DO Juan Hammond Last Filed: 04/14/24 02:22> Initial Vital Signs Initial Vital Signs: Vital Signs Temperature 97.9 F 04/12/24 18:49 Pulse Rate 121 H 04/12/24 18:49 Respiratory Rate 18 04/12/24 18:49 Blood Pressure 102/58 L 04/12/24 18:49 Pulse Oximetry 100 04/12/24 18:49 Oxygen Delivery Method Room Air 04/12/24 18:49 GENERAL: Alert pleasant 68-year-old male and in no acute distress. HEENT: Head atraumatic,EOMI, pupils reactive, face symmetric, moist mucous membranes CARDIOVASCULAR: Regular rate and rhythm without murmurs, rubs or gallops. RESPIRATORY: Breath sounds equal bilaterally, no wheezes rales or rhonchi. ABDOMEN: Soft, nontender. Normoactive bowel sounds all 4 quadrants. No guarding or rebound. EXTREMITIES: Normal range of motion, no clubbing or edema. Neurovascularly intact NEUROLOGICAL: Alert and oriented x4.Normal gait and speech. Cranial nerves II through XII grossly intact. SKIN: Warm, dry, no laceration, no petechiae, no rashes or lesions. <Serjio Deleon MD - Last Filed: 04/13/24 20:40> Initial Vital Signs Initial Vital Signs: Vital Signs Temperature 97.9 F 04/12/24 18:49 Pulse Rate 121 H 04/12/24 18:49 Respiratory Rate 18 04/12/24 18:49 Blood Pressure 102/58 L 04/12/24 18:49 Pulse Oximetry 100 04/12/24 18:49 Oxygen Delivery Method Room Air 04/12/24 18:49 Course <Roxanne Tavarez DO - Last Filed: 04/14/24 02:22> Orders Ordered: ED Orders 04/13/24 17:35 Hemoglobin and Hematocrit Urgent Discontinued Medications Acetaminophen (Acetaminophen 325 Mg Tablet) 975 mg PO NOW ONE Stop: 04/13/24 23:27 Last Admin: 04/13/24 23:34 Dose: 975 mg Documented By: AB Sodium Chloride (Normal Saline 0.9%) 1,000 mls @ 100 mls/hr IV CONT GATO Last Admin: 04/13/24 19:47 Dose: 100 mls/hr Documented By: Ondansetron HCl (Ondansetron 4 Mg/2 Ml Inj) 4 mg IV NOW ONE Stop: 04/12/24 19:38 Last Admin: 04/12/24 19:41 Dose: 4 mg Documented By: BRUNO Pantoprazole Sodium (Pantoprazole 40 Mg Vial) 80 mg IV NOW ONE Stop: 04/12/24 22:34 Last Admin: 04/12/24 23:00 Dose: 80 mg Documented By: ADDY Pantoprazole Sodium (Pantoprazole 40 Mg Vial) 40 mg IV BID [facility] Last Admin: 04/13/24 21:03 Dose: 40 mg Documented By: Admin: 04/13/24 12:19 Dose: 40 mg Documented By: Vital Signs Vital signs: Vital Signs - 8 hr 04/13/24 18:30 04/13/24 18:30 04/13/24 19:00 Pulse Rate 94 H 92 H Respiratory Rate 20 17 Blood Pressure 100/65 Pulse Oximetry 93 92 Oxygen Delivery Method 04/13/24 19:00 04/13/24 19:30 04/13/24 19:30 Pulse Rate 96 H Respiratory Rate 25 H Blood Pressure 110/59 L 111/64 Pulse Oximetry 93 Oxygen Delivery Method 04/13/24 20:00 04/13/24 20:00 04/13/24 20:30 Pulse Rate 93 H 93 H Respiratory Rate 24 23 Blood Pressure 104/60 Pulse Oximetry 93 93 Oxygen Delivery Method 04/13/24 21:00 04/13/24 21:30 04/13/24 22:00 Pulse Rate 91 H 87 Respiratory Rate 20 19 Blood Pressure 111/58 L Pulse Oximetry 96 93 Oxygen Delivery Method Room Air 04/13/24 22:00 04/13/24 22:30 04/13/24 23:00 Pulse Rate 87 85 90 Respiratory Rate 18 20 19 Blood Pressure Pulse Oximetry 93 92 94 Oxygen Delivery Method Room Air <Serjio Deleon MD - Last Filed: 04/13/24 20:40> Orders Ordered: ED Orders 04/13/24 17:35 Hemoglobin and Hematocrit Urgent Discontinued Medications Acetaminophen (Acetaminophen 325 Mg Tablet) 975 mg PO NOW ONE Stop: 04/13/24 23:27 Last Admin: 04/13/24 23:34 Dose: 975 mg Documented By: Sodium Chloride (Normal Saline 0.9%) 1,000 mls @ 100 mls/hr IV CONT [facility] Last Admin: 04/13/24 19:47 Dose: 100 mls/hr Documented By: Ondansetron HCl (Ondansetron 4 Mg/2 Ml Inj) 4 mg IV NOW ONE Stop: 04/12/24 19:38 Last Admin: 04/12/24 19:41 Dose: 4 mg Documented By: BRUNO Pantoprazole Sodium (Pantoprazole 40 Mg Vial) 80 mg IV NOW ONE Stop: 04/12/24 22:34 Last Admin: 04/12/24 23:00 Dose: 80 mg Documented By: ADDY Pantoprazole Sodium (Pantoprazole 40 Mg Vial) 40 mg IV BID [facility] Last Admin: 04/13/24 21:03 Dose: 40 mg Documented By: Admin: 04/13/24 12:19 Dose: 40 mg Documented By: Vital Signs Vital signs: Vital Signs - 8 hr 04/13/24 18:30 04/13/24 18:30 04/13/24 19:00 Pulse Rate 94 H 92 H Respiratory Rate 20 17 Blood Pressure 100/65 Pulse Oximetry 93 92 Oxygen Delivery Method 04/13/24 19:00 04/13/24 19:30 04/13/24 19:30 Pulse Rate 96 H Respiratory Rate 25 H Blood Pressure 110/59 L 111/64 Pulse Oximetry 93 Oxygen Delivery Method 04/13/24 20:00 04/13/24 20:00 04/13/24 20:30 Pulse Rate 93 H 93 H Respiratory Rate 24 23 Blood Pressure 104/60 Pulse Oximetry 93 93 Oxygen Delivery Method 04/13/24 21:00 04/13/24 21:30 04/13/24 22:00 Pulse Rate 91 H 87 Respiratory Rate 20 19 Blood Pressure 111/58 L Pulse Oximetry 96 93 Oxygen Delivery Method Room Air 04/13/24 22:00 04/13/24 22:30 04/13/24 23:00 Pulse Rate 87 85 90 Respiratory Rate 18 20 19 Blood Pressure Pulse Oximetry 93 92 94 Oxygen Delivery Method Room Air MDM - GI Bleed <Roxanne Tavarez, DO - Last Filed: 04/14/24 02:22> Lab Data 04/13/24 17:35 04/13/24 11:00 Labs: Lab Results 04/12/24 04/12/24 04/12/24 Range/Units 19:17 19:50 23:02 WBC 13.0 H (4.5-11.0) X10^3/uL RBC 3.05 L (4.5-5.9) X10^6/uL Hgb 9.6 L (13.5-17.5) g/dL Hct 28.6 L (41-53) % MCV 94.0 (80-100) fL MCH 31.6 (26-34) PG MCHC 33.6 (30-36) % RDW 14.2 (11.6-14.8) % Plt Count 230 (150-400) X10^3/uL Neut % (Auto) 74.5 (50-75) % Lymph % (Auto) 20.1 L (25-40) % [place] % (Auto) 4.3 (3-14) % Eos % (Auto) 0.4 L (2-4) % Baso % (Auto) 0.7 (0-2) % Neut # (Auto) 9700 H (0578-0215) /uL Lymph # (Auto) 2600 (8753-7661) /uL [place] # (Auto) 600 (0-900) /uL Eos # (Auto) 100 (0-450) /uL Baso # (Auto) 100 (0-100) /uL PT 12.2 (9.4-12.5) SECONDS INR 1.1 (0.9-1.3) APTT 25 L D (25.1-36.5) SECONDS Sodium 136 L (137-145) mmol/L Potassium 4.7 (3.4-5.1) mmol/L Chloride 103 (98-107) mmol/L Carbon Dioxide 25 (22-32) mmol/L BUN 57 H (9-20) mg/dL Creatinine 1.33 H (0.66-1.25) mg/dL Estimated GFR 58 L (>60) mL/min BUN/Creatinine Ratio 42.9 H (6-22) Glucose 134 H (80-110) mg/dL Lactate 1.7 (0.7-2.1) mmol/L Calcium 8.9 (8.4-10.2) mg/dL Total Bilirubin 0.4 (0.2-1.3) mg/dL AST 29 (17-59) IU/L ALT 50 H (<50) IU/L Alkaline Phosphatase 84 (38-126) U/L Total Protein 6.5 (6.3-8.2) g/dL Albumin 3.8 (3.5-5.0) g/dL Globulin 2.7 (1.7-4.1) g/dL Albumin/Globulin Ratio 1.4 (1.0-2.8) Ur Bilirubin Confirm Negative Negative (Negative) Urine RBC 0-1/hpf None seen (0-5/HPF) Urine WBC 0-1/hpf None seen (0-5/HPF) Ur Squamous Epith Cells 0-1 /hpf 0-1 /hpf (0-5/HPF) Urine Bacteria Occasional (0-1) None seen (None) Urine Mucus 3+ H (Negative) Ur Culture Indicated? Cult not indicated Cult not indicated Vol Urine Centrifuged 10ml (spun) 10ml (spun) Blood Type A Positive Antibody Screen Negative Crossmatch See Detail 04/13/24 04/13/24 04/13/24 Range/Units 03:05 11:00 17:35 WBC 10.4 (4.5-11.0) X10^3/uL RBC 3.30 L (4.5-5.9) X10^6/uL Hgb 9.1 L 10.6 L 10.9 L (13.5-17.5) g/dL Hct 27.2 L 30.8 L 32.2 L (41-53) % MCV 93.4 (80-100) fL MCH 32.0 (26-34) PG MCHC 34.3 (30-36) % RDW 14.1 (11.6-14.8) % Plt Count 169 (150-400) X10^3/uL Neut % (Auto) (50-75) % Lymph % (Auto) (25-40) % [place] % (Auto) (3-14) % Eos % (Auto) (2-4) % Baso % (Auto) (0-2) % Neut # (Auto) (1884-4668) /uL Lymph # (Auto) (2356-5725) /uL [place] # (Auto) (0-900) /uL Eos # (Auto) (0-450) /uL Baso # (Auto) (0-100) /uL PT (9.4-12.5) SECONDS INR (0.9-1.3) APTT (25.1-36.5) SECONDS Sodium 138 (137-145) mmol/L Potassium 4.0 (3.4-5.1) mmol/L Chloride 109 H (98-107) mmol/L Carbon Dioxide 24 (22-32) mmol/L BUN 49 H (9-20) mg/dL Creatinine 1.21 (0.66-1.25) mg/dL Estimated GFR > 60 (>60) mL/min BUN/Creatinine Ratio 40.5 H (6-22) Glucose 95 (80-110) mg/dL Lactate (0.7-2.1) mmol/L Calcium 8.4 (8.4-10.2) mg/dL Total Bilirubin 0.6 (0.2-1.3) mg/dL AST 23 (17-59) IU/L ALT 36 (<50) IU/L Alkaline Phosphatase 70 (38-126) U/L Total Protein 5.7 L (6.3-8.2) g/dL Albumin 3.2 L (3.5-5.0) g/dL Globulin 2.5 (1.7-4.1) g/dL Albumin/Globulin Ratio 1.3 (1.0-2.8) Ur Bilirubin Confirm (Negative) Urine RBC (0-5/HPF) Urine WBC (0-5/HPF) Ur Squamous Epith Cells (0-5/HPF) Urine Bacteria (None) Urine Mucus (Negative) Ur Culture Indicated? Vol Urine Centrifuged Blood Type Antibody Screen Crossmatch Urine Dip Bedside Urine Glucose Negative Bedside Urine Bilirubin + 1 Bedside Urine Ketone - Negative Urine Specific [place] 1.015 Bedside Urine Occult Blood - Negative Bedside Urine pH 5.5 Bedside Urine Protein - Negative Bedside Urine Urobilinogen - Negative Bedside Urine Nitrite - Negative Bedside Urine Leukocytes +/- 15 Esterase MDM Narrative Medical decision making narrative: 60-year-old male presenting to day with ongoing nausea vomiting weakness. Seen yesterday had some anemia. Hemoglobin does seem to be slowly dropping. However in the waiting room he got really hypotensive and tachycardic. Protonix ordered 1 product unit of red blood cells ordered as well. Blood pressure is improving Blood work has been reviewed CBC shows anemia and leukocytosis WBC is 13 hemoglobin 9 0.6/28.6, CMP shows worsening BUN creatinine ratio today it is 57:1.3, yesterday was 42: 1.24 Electrolytes remain stable sodium 136 potassium 4 7 chloride 103 carbon dioxide [address] angio shows hyperdensity in lower rectum on the left maybe hemorrhoidal vessels no extravasation of contrast 7644 Dr. Sood on-call surgery updated on patient's symptoms test results would like tagged red blood cell scan if available otherwise can do a colonoscopy in the morning Dr. Swain, on-call hospitalist updated patient's symptoms test results lung with surgery recommendations. She is concerned that patient may require higher level of care. Request repeat H&H after the packed red unit of blood cells. Repeat hemoglobin is 9.1/27.2 previously 9.6/28.6. Actually good down after full unit of packed red blood cells. Dr. Swain, was reconsulted recommends another unit of red blood cell and continue on with transferring concern that patient still may require higher level of care Patient has been in the ED for 11-1/2 hours he has not had any nausea vomiting or rectal bleeding. Patient did not have really any significant improvement in hemoglobin concerning for ongoing blood loss although he has not had any nausea vomiting or diarrhea. 2nd unit of packed red blood cells is hanging. Patient remains on multiple transfer list all hospitalist at capacity <Serjio Deleon MD - Last Filed: 04/13/24 20:40> Lab Data Labs: Lab Results 04/12/24 04/12/24 04/12/24 Range/Units 19:17 19:50 23:02 WBC 13.0 H (4.5-11.0) X10^3/uL RBC 3.05 L (4.5-5.9) X10^6/uL Hgb 9.6 L (13.5-17.5) g/dL Hct 28.6 L (41-53) % MCV 94.0 (80-100) fL MCH 31.6 (26-34) PG MCHC 33.6 (30-36) % RDW 14.2 (11.6-14.8) % Plt Count 230 (150-400) X10^3/uL Neut % (Auto) 74.5 (50-75) % Lymph % (Auto) 20.1 L (25-40) % [place] % (Auto) 4.3 (3-14) % Eos % (Auto) 0.4 L (2-4) % Baso % (Auto) 0.7 (0-2) % Neut # (Auto) 9700 H (5460-3887) /uL Lymph # (Auto) 2600 (5541-6425) /uL [place] # (Auto) 600 (0-900) /uL Eos # (Auto) 100 (0-450) /uL Baso # (Auto) 100 (0-100) /uL PT 12.2 (9.4-12.5) SECONDS INR 1.1 (0.9-1.3) APTT 25 L D (25.1-36.5) SECONDS Sodium 136 L (137-145) mmol/L Potassium 4.7 (3.4-5.1) mmol/L Chloride 103 (98-107) mmol/L Carbon Dioxide 25 (22-32) mmol/L BUN 57 H (9-20) mg/dL Creatinine 1.33 H (0.66-1.25) mg/dL Estimated GFR 58 L (>60) mL/min BUN/Creatinine Ratio 42.9 H (6-22) Glucose 134 H (80-110) mg/dL Lactate 1.7 (0.7-2.1) mmol/L Calcium 8.9 (8.4-10.2) mg/dL Total Bilirubin 0.4 (0.2-1.3) mg/dL AST 29 (17-59) IU/L ALT 50 H (<50) IU/L Alkaline Phosphatase 84 (38-126) U/L Total Protein 6.5 (6.3-8.2) g/dL Albumin 3.8 (3.5-5.0) g/dL Globulin 2.7 (1.7-4.1) g/dL Albumin/Globulin Ratio 1.4 (1.0-2.8) Ur Bilirubin Confirm Negative Negative (Negative) Urine RBC 0-1/hpf None seen (0-5/HPF) Urine WBC 0-1/hpf None seen (0-5/HPF) Ur Squamous Epith Cells 0-1 /hpf 0-1 /hpf (0-5/HPF) Urine Bacteria Occasional (0-1) None seen (None) Urine Mucus 3+ H (Negative) Ur Culture Indicated? Cult not indicated Cult not indicated Vol Urine Centrifuged 10ml (spun) 10ml (spun) Blood Type A Positive Antibody Screen Negative Crossmatch See Detail 04/13/24 04/13/24 04/13/24 Range/Units 03:05 11:00 17:35 WBC 10.4 (4.5-11.0) X10^3/uL RBC 3.30 L (4.5-5.9) X10^6/uL Hgb 9.1 L 10.6 L 10.9 L (13.5-17.5) g/dL Hct 27.2 L 30.8 L 32.2 L (41-53) % MCV 93.4 (80-100) fL MCH 32.0 (26-34) PG MCHC 34.3 (30-36) % RDW 14.1 (11.6-14.8) % Plt Count 169 (150-400) X10^3/uL Neut % (Auto) (50-75) % Lymph % (Auto) (25-40) % [place] % (Auto) (3-14) % Eos % (Auto) (2-4) % Baso % (Auto) (0-2) % Neut # (Auto) (9102-4901) /uL Lymph # (Auto) (8439-9840) /uL [place] # (Auto) (0-900) /uL Eos # (Auto) (0-450) /uL Baso # (Auto) (0-100) /uL PT (9.4-12.5) SECONDS INR (0.9-1.3) APTT (25.1-36.5) SECONDS Sodium 138 (137-145) mmol/L Potassium 4.0 (3.4-5.1) mmol/L Chloride 109 H (98-107) mmol/L Carbon Dioxide 24 (22-32) mmol/L BUN 49 H (9-20) mg/dL Creatinine 1.21 (0.66-1.25) mg/dL Estimated GFR > 60 (>60) mL/min BUN/Creatinine Ratio 40.5 H (6-22) Glucose 95 (80-110) mg/dL Lactate (0.7-2.1) mmol/L Calcium 8.4 (8.4-10.2) mg/dL Total Bilirubin 0.6 (0.2-1.3) mg/dL AST 23 (17-59) IU/L ALT 36 (<50) IU/L Alkaline Phosphatase 70 (38-126) U/L Total Protein 5.7 L (6.3-8.2) g/dL Albumin 3.2 L (3.5-5.0) g/dL Globulin 2.5 (1.7-4.1) g/dL Albumin/Globulin Ratio 1.3 (1.0-2.8) Ur Bilirubin Confirm (Negative) Urine RBC (0-5/HPF) Urine WBC (0-5/HPF) Ur Squamous Epith Cells (0-5/HPF) Urine Bacteria (None) Urine Mucus (Negative) Ur Culture Indicated? Vol Urine Centrifuged Blood Type Antibody Screen Crossmatch Urine Dip Bedside Urine Glucose Negative Bedside Urine Bilirubin + 1 Bedside Urine Ketone - Negative Urine Specific [place] 1.015 Bedside Urine Occult Blood - Negative Bedside Urine pH 5.5 Bedside Urine Protein - Negative Bedside Urine Urobilinogen - Negative Bedside Urine Nitrite - Negative Bedside Urine Leukocytes +/- 15 Esterase MDM Narrative Medical decision making narrative: 60-year-old male presenting to day with ongoing nausea vomiting weakness. Seen yesterday had some anemia. Hemoglobin does seem to be slowly dropping. However in the waiting room he got really hypotensive and tachycardic. Protonix ordered 1 product unit of red blood cells ordered as well. Blood pressure is improving Blood work has been reviewed CBC shows anemia and leukocytosis WBC is 13 hemoglobin 9 0.6/28.6, CMP shows worsening BUN creatinine ratio today it is 57:1.3, yesterday was 42: 1.24 Electrolytes remain stable sodium 136 potassium 4 7 chloride 103 carbon dioxide [address] angio shows hyperdensity in lower rectum on the left maybe hemorrhoidal vessels no extravasation of contrast 2344 Dr. Sood on-call surgery updated on patient's symptoms test results would like tagged red blood cell scan if available otherwise can do a colonoscopy in the morning Dr. Swain, on-call hospitalist updated patient's symptoms test results lung with surgery recommendations. She is concerned that patient may require higher level of care. Request repeat H&H after the packed red unit of blood cells. Repeat hemoglobin is 9.1/27.2 previously 9.6/28.6. Actually good down after full unit of packed red blood cells. Dr. Swain, was reconsulted recommends another unit of red blood cell and continue on with transferring concern that patient still may require higher level of care Patient has been in the ED for 11-1/2 hours he has not had any nausea vomiting or rectal bleeding. Patient did not have really any significant improvement in hemoglobin concerning for ongoing blood loss although he has not had any nausea vomiting or diarrhea. 2nd unit of packed red blood cells is hanging. Patient remains on multiple transfer list all hospitalist at capacity 04/13/2024, 07Ronni, Pancho. 68-year-old male with history of brain AVM associated brain bleeding last month for which he was transferred to [facility], discharged, having ongoing nausea vomiting weakness, seen here 04/11/2024, hemoglobin 11-10 range and was sent home, returned again last night with nausea and vomiting, initial hypotension was systolic 80, heart rate 120, coffee-ground emesis, transfused 1 unit packed red blood cells, IV Protonix given. CT abdomen and pelvis GI bleed protocol was performed and reportedly negative. General surgery Dr. Sood was consulted here, clearing if tagged red blood cell study can be done here, unclear if this is available here. Query also made to overnight hospitalist who requested repeat H&H. Initial hemoglobin 9.6 dropped to 9.1, 2nd unit transfused. Transfer advised to IR/GI capable facility. Assumed care. 09, Case discussed with [facility]. Await call back. 1020, case discussed with Laisha Butcher intake 1030, case discussed with Dr Cindy Dubose, no ongoing witnessed stooling or emesis here, does not feel tagged red cells study is indicated, CTA abdomen GI bleeding study results were negative noted, feels patient can be treated admitted here for upper/lower endoscopy. 1035, case discussed again with Dr. Sood, who is willing to consult here, advises admit to hospitalist here. Consult hospitalist Dr. Troy requested. 1100, repeat hemoglobin 10.6 noted, increased. Awaiting call back from hospitalist 1155, consult hospitalist Dr. Troy, who spoke with anesthesia, patient had recent AVM/coil Neurosurgery, anesthesia not comfortable with providing sedation for endoscopy here, advised transfer. We will continue attempts at transfer, currently wait listed multiple facilities. 1300, case discussed [facility], they are saturated, also placed on wait list 1440, case discussed with hospitalist Laisha Weathers who accepts patient for transfer No further bleeding noted, no emesis noted, repeat hemoglobin further increased. 2020, bed available at [facility], EMS transport for consultative services Critical Care Time <Serjio Deleon MD - Last Filed: 04/13/24 20:40> Critical Care Time Critical Care Time: Yes Total Critical Care Time: 35 Attestation: The high probability of a clinically significant, sudden or life threatening deterioration of the [gastrointestinal, abdominopelvic] system(s) required my full and direct attention, intervention and personal management. The aggregate critical care time was [35] minutes. This time is in addition to time spent performing reported procedures but includes the following: [x] Data Review and interpretation [x] Patient assessment and monitoring of vital signs [x] Documentation [x] Medication orders and management Discharge Plan Departure Patient Disposition: [facility] Clinical Impression: Gastrointestinal bleeding, History of brain surgery Prescriptions: No Action simvastatin 20 mg tablet 20 mg PO DAILY tamsulosin 0.4 mg capsule 0.4 mg PO DAILY ondansetron 4 mg tablet,disintegrating 4 mg PO Q8H PRN (Reason: nausea and vomiting) Qty: 20 0RF meclizine 25 mg tablet 25 mg PO QID PRN (Reason: dizziness) Qty: 30 0RF Referrals: Hemanth Segura MD [Primary Care Provider] -
[2024-04-12] MEDS: PANTOPRAZOLE 40 MG VIAL 80 MG IV (23:00)
[2024-04-12 23:14] LABS: Ictotest Urine Negative (Negative)
[2024-04-12 23:15] LABS: Bacteria Urine None Seen; Culture Indicated Urine Cult Not Indicated; RBC Urine None Seen (0-5/HPF); Squamous Epithelial Cell Urine 0-1 /HPF (0-5/HPF); Urine Volume 10mL (spun); WBC Urine None Seen (0-5/HPF)
[2024-04-13] VITALS (54 sets, daily range): BP systolic 100–130; BP diastolic 57–78; PULSE 85–100; RESP 8–29; TEMP 36.6–38.1; O2SAT 92–98
[2024-04-13 03:21] LABS: Hematocrit 27.2 % (41-53); Hemoglobin 9.1 g/dL (13.5-17.5)
--- NOTE | 2024-04-13 08:26 | PC.NURSE ---
Blood transfusion finished. Pt states he feels great. GCS 15. Respirations regular and unlabored. Afebrile. Family at bedside--updated on plan of care.
--- NOTE | 2024-04-13 10:32 | PC.NURSE ---
Updated family on progress of finding a suitable hospital. Pt VSS. Lying back in [facility]. Appears in NAD.
[2024-04-13 11:11] LABS: Hematocrit 30.8 % (41-53); Hemoglobin 10.6 g/dL (13.5-17.5); Mean Corpuscular HGB Conc 34.3 % (30-36); Mean Corpuscular Volume 93.4 fL (80-100); Platelet Count 169 X10^3/uL (150-400); Red Cell Distribution Width 14.1 % (11.6-14.8); White Blood Cell Count 10.4 X10^3/uL (4.5-11.0)
[2024-04-13 11:18] LABS: Alanine Aminotransferase 36 IU/L (<50); Albumin 3.2 g/dL (3.5-5.0); Albumin Globulin Ratio 1.3 (1.0-2.8); Alkaline Phosphatase 70 U/L (38-126); Aspartate Aminotransferase 23 IU/L (17-59); BUN Creatinine Ratio 40.5 (6-22); Bilirubin Total 0.6 mg/dL (0.2-1.3); Blood Urea Nitrogen 49 mg/dL (9-20); Calcium 8.4 mg/dL (8.4-10.2); Carbon Dioxide 24 mmol/L (22-32); Chloride 109 mmol/L (98-107); Estimated Glomerular Filt Rate > 60 mL/min (>60); Globulin 2.5 g/dL (1.7-4.1); Glucose 95 mg/dL (80-110); HEMOLYSIS < 15 (0-50); Sodium 138 mmol/L (137-145); Total Protein 5.7 g/dL (6.3-8.2)
--- NOTE | 2024-04-13 12:04 | P.CONS_ITS ---
History of Present Illness Consult details Date Patient Seen: 04/13/24 Time Patient Seen: 12:05 Chief complaint: return discharged 04/11, bleeding Narrative: This is a 68 year old male with PMH of brain AVM with recent coiling at [facility] approx. 1 month ago. Since then he has continued to be declined from his previous baseline. He lives at [facility] with [facility]. For the past week has had dark stools at assisted living. He does become weak and dizzy. Yesterday he began to have sudden onset of a sharp abdominal pain with coffee ground emesis after. He had 2-3 episodes of this and then stopped. He denies abdominal pain currently and has had no further episodes of emesis. His h/h continued to decline despite 2U PRBC initially, dropping from 11.3 to 9.1. It is improved this morning at 10.6. Overnight telehospitalist recommended transfer for IR availability. Patient is on multiple wait lists at the moment, I was asked to review again for admission here. I did discuss with anesthesia who was a bit hesitant for anesthesia here with recent coiling just over a month ago and lack of availability for consultation with IR or neurosurgery. Surgeon requested a consult order which was done. He is indicated for endoscopy. Meds Home Medications and Allergies Home Medications Medication Instructions Recorded Confirmed Type simvastatin 20 mg tablet 20 mg PO DAILY 12/15/23 12/22/23 History tamsulosin 0.4 mg capsule 0.4 mg PO DAILY 12/15/23 12/22/23 History meclizine 25 mg tablet 25 mg PO QID PRN dizziness #30 tabs 04/06/24 Rx ondansetron 4 mg disintegrating 4 mg PO Q8H PRN nausea and 04/06/24 Rx tablet vomiting #20 tabs Allergies Allergy/AdvReac Type Severity Reaction Status Date / Time No Known Drug Allergies Allergy Verified 04/11/24 19:13 Review of Systems Review of Systems Narrative: All other systems reviewed with the patient and are negative unless otherwise stated. Exam Vital Signs (past 8 hours): - 04/13/24 04:39 04/13/24 04:56 04/13/24 07:00 Temperature 98.3 F 98.4 F Pulse Rate 100 H 100 H 96 H Respiratory Rate 20 19 17 Blood Pressure 111/57 L 105/58 L Pulse Oximetry 94 Oxygen Delivery Method 04/13/24 07:00 04/13/24 07:26 04/13/24 07:30 Temperature 100.5 F H Pulse Rate 95 H 97 H Respiratory Rate 18 19 Blood Pressure 113/64 113/64 Pulse Oximetry 96 Oxygen Delivery Method 04/13/24 07:30 04/13/24 07:58 04/13/24 08:00 Temperature Pulse Rate Respiratory Rate Blood Pressure 119/66 108/63 Pulse Oximetry 95 Oxygen Delivery Method Room Air 04/13/24 08:00 04/13/24 08:04 04/13/24 08:30 Temperature 98.6 F Pulse Rate 96 H 94 H Respiratory Rate 18 24 Blood Pressure Pulse Oximetry 96 95 Oxygen Delivery Method 04/13/24 08:31 04/13/24 08:31 04/13/24 09:00 Temperature Pulse Rate 95 H Respiratory Rate 23 Blood Pressure 118/66 116/64 Pulse Oximetry 95 Oxygen Delivery Method 04/13/24 09:00 04/13/24 09:30 04/13/24 09:30 Temperature Pulse Rate 95 H 95 H Respiratory Rate 29 H 18 Blood Pressure 118/67 Pulse Oximetry 95 94 Oxygen Delivery Method 04/13/24 10:00 04/13/24 10:00 04/13/24 10:30 Temperature Pulse Rate 93 H 95 H Respiratory Rate 20 18 Blood Pressure 107/62 Pulse Oximetry 93 94 Oxygen Delivery Method Room Air 04/13/24 10:30 04/13/24 11:00 04/13/24 11:01 Temperature Pulse Rate 96 H 96 H Respiratory Rate 25 H 22 Blood Pressure 106/66 Pulse Oximetry 95 94 Oxygen Delivery Method 04/13/24 11:01 04/13/24 11:30 04/13/24 11:30 Temperature Pulse Rate 96 H Respiratory Rate 26 H Blood Pressure 117/66 115/78 Pulse Oximetry 96 Oxygen Delivery Method Room Air Oxygen Delivery Method Room Air Narrative Exam Narrative: General:? Patient is well developed and well nourished, in no distress at this time. Difficult for patient to recall history, at baseline per family. Chest:? Normal AP diameter and contour without kyphoscoliosis, no tachypnea, equal chest rise bilaterally. Lungs:? CTA b/l no wheezing rhonchi or rales. Cardio:?RRR no m/r/g. Abdomen: S NT ND. Extremities: No edema or joint effusions. No cyanosis or clubbing. Objective Labs 04/13/24 11:00 04/13/24 11:00 Labs: Laboratory Results - last 24 hr 04/12/24 04/12/24 04/12/24 19:17 19:50 23:02 WBC 13.0 H RBC 3.05 L Hgb 9.6 L Hct 28.6 L MCV 94.0 MCH 31.6 MCHC 33.6 RDW 14.2 Plt Count 230 Neut % (Auto) 74.5 Lymph % (Auto) 20.1 L [place] % (Auto) 4.3 Eos % (Auto) 0.4 L Baso % (Auto) 0.7 Neut # (Auto) 9700 H Lymph # (Auto) 2600 [place] # (Auto) 600 Eos # (Auto) 100 Baso # (Auto) 100 PT 12.2 INR 1.1 APTT 25 L D Sodium 136 L Potassium 4.7 Chloride 103 Carbon Dioxide 25 BUN 57 H Creatinine 1.33 H Estimated GFR 58 L BUN/Creatinine Ratio 42.9 H Glucose 134 H Lactate 1.7 Calcium 8.9 Total Bilirubin 0.4 AST 29 ALT 50 H Alkaline Phosphatase 84 Total Protein 6.5 Albumin 3.8 Globulin 2.7 Albumin/Globulin Ratio 1.4 Ur Bilirubin Confirm Negative Negative Urine RBC 0-1/hpf None seen Urine WBC 0-1/hpf None seen Ur Squamous Epith Cells 0-1 /hpf 0-1 /hpf Urine Bacteria Occasional (0-1) None seen Urine Mucus 3+ H Ur Culture Indicated? Cult not indicated Cult not indicated Vol Urine Centrifuged 10ml (spun) 10ml (spun) Blood Type A Positive Antibody Screen Negative Crossmatch See Detail 04/13/24 04/13/24 03:05 11:00 WBC 10.4 RBC 3.30 L Hgb 9.1 L 10.6 L Hct 27.2 L 30.8 L MCV 93.4 MCH 32.0 MCHC 34.3 RDW 14.1 Plt Count 169 Neut % (Auto) Lymph % (Auto) [place] % (Auto) Eos % (Auto) Baso % (Auto) Neut # (Auto) Lymph # (Auto) [place] # (Auto) Eos # (Auto) Baso # (Auto) PT INR APTT Sodium 138 Potassium 4.0 Chloride 109 H Carbon Dioxide 24 BUN 49 H Creatinine 1.21 Estimated GFR > 60 BUN/Creatinine Ratio 40.5 H Glucose 95 Lactate Calcium 8.4 Total Bilirubin 0.6 AST 23 ALT 36 Alkaline Phosphatase 70 Total Protein 5.7 L Albumin 3.2 L Globulin 2.5 Albumin/Globulin Ratio 1.3 Ur Bilirubin Confirm Urine RBC Urine WBC Ur Squamous Epith Cells Urine Bacteria Urine Mucus Ur Culture Indicated? Vol Urine Centrifuged Blood Type Antibody Screen [facility]match [facility] Medical History Stroke Coronary artery disease Hyperlipemia Hypertension Dementia Tobacco & Substance Use Smoking Status: Former smoker Assessment & Plan Assessment & Plan narrative: 1. Acute blood loss anemia secondary to GI bleed (likely upper) - elevated BUN at 49. Suspect upper GI bleeding based on presentation and labs. Patient has no NSAID use. - Hg 11.3 >>> 9.1 despite 2U PRBC, now improved to 10.6. Repeat ordered for 6 hours. - Continue IV PPI BID - Surgery consult order placed. Did discuss with surgeon supervisor inspection and testing. Defer diet to surgery recommendations. - CTA showed no obvious extravasation, hyperdensity not seen on non-contrast images in the rectum, possibly hemorrhoidal vessels. - Given anesthesia concerns his recent coiling for a ruptured aneurysm, as well as a lack of availability of IR if patient rebleeds, continue to recommend transfer for higher level of care. - hold home BP medications. 2. CKD stage III - appears to be near baseline Cr at 1.2, unknown baseline given intermittent labs drawn here. 3. History of prior AVM with aneurysm coiling in 03/2024. - has been suffering from recurrent bouts of vertigo since his recent coiling, continue zofran. - continue outpatient follow up with neurosurgery at [facility]. 4. Chronic cognitive impairment 5. BPH - hold tamsulosin Code: Full DVT: contra-indicated, okay for SCDs I have utilized all available immediate resources to obtain, update, or review the patient's current medications. Dispo: continue to recommend transfer for higher level of care. Medicine will continue to help follow the patient in the ER. I have ordered repeat h/h, and IV PPI BID. Additional history obtained via discussions with the ER provider, anesthesiologist, and general surgeon. These discussions contributed to the creation of the above assessment and plan. I have reviewed patient's presenting documentation, labs, and imaging personally. Medicine will continue to help manage patient while in the ER awaiting higher level of care. Time-Based Coding :: [TOTAL MINUTES] spent with patient and on the chart (including review of chart, obtaining history, exam, reviewing outside data, placing orders, documenting exam and treatment plan, and counseling patient) on [DATE].
[2024-04-13] MEDS: PANTOPRAZOLE 40 MG VIAL IV ×2 (12:19→21:03)
--- NOTE | 2024-04-13 12:44 | PM.CN.IH.1 ---
History of Present Illness Consult details Date Patient Seen: 04/13/24 Time Patient Seen: 12:44 Chief complaint: return discharged 04/11, bleeding Reason for consult: Hematemesis Requesting provider: Ron Troy Narrative: 68-year-old white male with 2 episodes of hematemesis with 2 trips to the ER. His past medical history is complicated by a cerebral aneurysm treated by embolization. Per the he is never returned to his baseline mental status since that last year. Meds Home Medications and Allergies Home Medications Medication Instructions Recorded Confirmed Type simvastatin 20 mg tablet 20 mg PO DAILY 12/15/23 12/22/23 History tamsulosin 0.4 mg capsule 0.4 mg PO DAILY 12/15/23 12/22/23 History meclizine 25 mg tablet 25 mg PO QID PRN dizziness #30 tabs 04/06/24 Rx ondansetron 4 mg disintegrating 4 mg PO Q8H PRN nausea and 04/06/24 Rx tablet vomiting #20 tabs Allergies Allergy/AdvReac Type Severity Reaction Status Date / Time No Known Drug Allergies Allergy Verified 04/11/24 19:13 Review of Systems Review of Systems ROS: Yes All systems reviewed with the patient and are negative except as otherwise documented Exam Vital Signs (past 8 hours): - 04/13/24 04:56 04/13/24 07:00 04/13/24 07:00 Temperature 98.4 F Pulse Rate 100 H 96 H Respiratory Rate 19 17 Blood Pressure 105/58 L 113/64 Pulse Oximetry 94 Oxygen Delivery Method 04/13/24 07:26 04/13/24 07:30 04/13/24 07:30 Temperature 100.5 F H Pulse Rate 95 H 97 H Respiratory Rate 18 19 Blood Pressure 113/64 119/66 Pulse Oximetry 96 Oxygen Delivery Method 04/13/24 07:58 04/13/24 08:00 04/13/24 08:00 Temperature Pulse Rate 96 H Respiratory Rate 18 Blood Pressure 108/63 Pulse Oximetry 95 96 Oxygen Delivery Method Room Air 04/13/24 08:04 04/13/24 08:30 04/13/24 08:31 Temperature 98.6 F Pulse Rate 94 H 95 H Respiratory Rate 24 23 Blood Pressure Pulse Oximetry 95 95 Oxygen Delivery Method 04/13/24 08:31 04/13/24 09:00 04/13/24 09:00 Temperature Pulse Rate 95 H Respiratory Rate 29 H Blood Pressure 118/66 116/64 Pulse Oximetry 95 Oxygen Delivery Method 04/13/24 09:30 04/13/24 09:30 04/13/24 10:00 Temperature Pulse Rate 95 H 93 H Respiratory Rate 18 20 Blood Pressure 118/67 Pulse Oximetry 94 93 Oxygen Delivery Method 04/13/24 10:00 04/13/24 10:30 04/13/24 10:30 Temperature Pulse Rate 95 H Respiratory Rate 18 Blood Pressure 107/62 106/66 Pulse Oximetry 94 Oxygen Delivery Method Room Air 04/13/24 11:00 04/13/24 11:01 04/13/24 11:01 Temperature Pulse Rate 96 H 96 H Respiratory Rate 25 H 22 Blood Pressure 117/66 Pulse Oximetry 95 94 Oxygen Delivery Method 04/13/24 11:30 04/13/24 11:30 04/13/24 12:00 Temperature Pulse Rate 96 H 94 H Respiratory Rate 26 H 18 Blood Pressure 115/78 Pulse Oximetry 96 94 Oxygen Delivery Method Room Air Room Air 04/13/24 12:00 Temperature Pulse Rate Respiratory Rate Blood Pressure 114/63 Pulse Oximetry Oxygen Delivery Method Oxygen Delivery Method Room Air Narrative Exam Narrative: Gen: NAD, sitting comfortably in bed, appears well HEENT: Sclera are anicteric, head is normocephalic and atraumatic, trachea is midline. CV: RRR, no JVD Resp: clear to auscultation bilaterally, equal chest wall movement bilaterally Abd: soft, nontender, normoactive bowel sounds Ext: no edema, full range of motion Neuro: Cranial nerves II-XII grossly intact, no focal deficits Skin: No erythema or ecchymosis Objective Labs 04/13/24 11:00 04/13/24 11:00 Labs: Laboratory Results - last 24 hr 04/12/24 04/12/24 04/12/24 19:17 19:50 23:02 WBC 13.0 H RBC 3.05 L Hgb 9.6 L Hct 28.6 L MCV 94.0 MCH 31.6 MCHC 33.6 RDW 14.2 Plt Count 230 Neut % (Auto) 74.5 Lymph % (Auto) 20.1 L [place] % (Auto) 4.3 Eos % (Auto) 0.4 L Baso % (Auto) 0.7 Neut # (Auto) 9700 H Lymph # (Auto) 2600 [place] # (Auto) 600 Eos # (Auto) 100 Baso # (Auto) 100 PT 12.2 INR 1.1 APTT 25 L D Sodium 136 L Potassium 4.7 Chloride 103 Carbon Dioxide 25 BUN 57 H Creatinine 1.33 H Estimated GFR 58 L BUN/Creatinine Ratio 42.9 H Glucose 134 H Lactate 1.7 Calcium 8.9 Total Bilirubin 0.4 AST 29 ALT 50 H Alkaline Phosphatase 84 Total Protein 6.5 Albumin 3.8 Globulin 2.7 Albumin/Globulin Ratio 1.4 Ur Bilirubin Confirm Negative Negative Urine RBC 0-1/hpf None seen Urine WBC 0-1/hpf None seen Ur Squamous Epith Cells 0-1 /hpf 0-1 /hpf Urine Bacteria Occasional (0-1) None seen Urine Mucus 3+ H Ur Culture Indicated? Cult not indicated Cult not indicated Vol Urine Centrifuged 10ml (spun) 10ml (spun) Blood Type A Positive Antibody Screen Negative Crossmatch See Detail 04/13/24 04/13/24 03:05 11:00 WBC 10.4 RBC 3.30 L Hgb 9.1 L 10.6 L Hct 27.2 L 30.8 L MCV 93.4 MCH 32.0 MCHC 34.3 RDW 14.1 Plt Count 169 Neut % (Auto) Lymph % (Auto) [place] % (Auto) Eos % (Auto) Baso % (Auto) Neut # (Auto) Lymph # (Auto) [place] # (Auto) Eos # (Auto) Baso # (Auto) PT INR APTT Sodium 138 Potassium 4.0 Chloride 109 H Carbon Dioxide 24 BUN 49 H Creatinine 1.21 Estimated GFR > 60 BUN/Creatinine Ratio 40.5 H Glucose 95 Lactate Calcium 8.4 Total Bilirubin 0.6 AST 23 ALT 36 Alkaline Phosphatase 70 Total Protein 5.7 L Albumin 3.2 L Globulin 2.5 Albumin/Globulin Ratio 1.3 Ur Bilirubin Confirm Urine RBC Urine WBC Ur Squamous Epith Cells Urine Bacteria Urine Mucus Ur Culture Indicated? Vol Urine Centrifuged Blood Type Antibody Screen Crossmatch [facility] Medical History Stroke Coronary artery disease Hyperlipemia Hypertension Dementia Tobacco & Substance Use Smoking Status: Former smoker Assessment & Plan Assessment and plan (1) Hematemesis of fresh blood: Status: Acute Assessment & Plan narrative: ER has been trying to transfer patients since last night. He has required blood transfusion. Currently is hemodynamically stable. It is reasonable for us to perform an EGD while we were waiting to see whether or not he is going to be transferred. I have added him onto the OR schedule Time-Based Coding :: [TOTAL MINUTES] spent with patient and on the chart (including review of chart, obtaining history, exam, reviewing outside data, placing orders, documenting exam and treatment plan, and counseling patient) on [DATE]. PROFEE Charge Codes Inpatient or Observation consultation: [id number] (modifier 25)
--- NOTE | 2024-04-13 15:05 | PC.NURSE ---
continue attempts to transfer [facility] Waitlisted [facility] waitlisted says yes but no bed waitlisted /[facility] 0 transfers at this time [facility] [place] no beds [place] no bed available. [facility] called @1300 voice mail left. awaiting a return call. called back @2344 accepted at @ 1441. No bed yet unknow ETA of bed status
[2024-04-13 18:09] LABS: Hematocrit 32.2 % (41-53); Hemoglobin 10.9 g/dL (13.5-17.5)
[2024-04-13] MEDS: SODIUM CHLORIDE 0.9% 1,000 ML 100 ML IV (19:47)
--- NOTE | 2024-04-13 21:50 | PC.NURSE ---
TYSON GREY 2320 Report [id number] location [facility]/ [id number] accepted @
--- NOTE | 2024-04-13 22:58 | PC.NURSE ---
Assumed pt care at 2100, no issues reported during this time. Pt and family aware of pending transfer to .
[2024-04-13] MEDS: ACETAMINOPHEN 325 MG TABLET 975 MG PO (23:34)
--- NOTE | 2024-05-11 16:15 | PC.NURSE ---
late entry per RN IV NS was infusing upon transfer to another hospital.
== END 2024-04-13 23:51 | disposition short-term general hospital (02) ==
PROVIDERS: Emergency Medicine; Internal Medicine; Emergency Provider Emergency Medicine; PCP Family Medicine
DX: K92.2 Gastrointestinal hemorrhage, unspecified (principal); R00.0 Tachycardia, unspecified; I95.9 Hypotension, unspecified; K92.0 Hematemesis
CPT/HCPCS: 36415; 36430; 74174; 80053; 81003; 81015; 83605; 85014; 85018; 85025; 85027; 85610; 85730; 86850; 86900; 86901; 93005; 93010; 96361; 96374; 96375; 96376; 99285; 99291; P9016; J2405; J2470; Q9967

== ENCOUNTER 2024-07-06 07:41 | Emergency (ER) | payer MEDICARE, MEDICAID, SELFPAY ==
[2024-07-06 07:53] VITALS: BP 156/70; PULSE 85; RESP 18; TEMP 36.8; O2SAT 96; BMI 23.1
--- NOTE | 2024-07-06 07:55 | DI.CT.S_ITS ---
PROCEDURE: CT TRAUMA CHEST ABDOMEN PELVIS INDICATIONS: fell yesterday TECHNIQUE: After the administration of intravenous contrast, 5 mm thick sections acquired from the lung apices to the symphysis. 2.5 mm thick coronal and sagittal reformats were acquired. Additional 7 mm thick coronal maximum intensity projection (MIP) reformats acquired through the lungs. Optional 10-minute delayed imaging may be performed from the kidneys to the bladder. For radiation dose reduction, the following was used: automated exposure control, adjustment of mA and/or kV according to patient size. COMPARISON: [facility], CT, CT ANGIO ABD/PEL GI BLEED, 04/12/2024, 22:32. FINDINGS: Image quality: Diagnostic. CHEST: Lower Neck: No enlarged lymph nodes. Thyroid: No thyroid nodules which require sonographic evaluation. Axillae: No enlarged lymph nodes. Chest Wall: No subcutaneous gas. Lungs and Pleura: Small infiltrate/atelectasis scattered in posterior and lateral periphery of bilateral lower lobes. No pleural effusion or pneumothorax. No suspicious pulmonary nodules. Mediastinum: No mediastinal hematomas. Heart size is enlarged. No pericardial effusion. Thoracic aorta and pulmonary arteries demonstrate normal size and enhancement. No mediastinal or hilar adenopathy. Esophagus is normal in caliber. No hiatal hernia. ABDOMEN: Liver: No lacerations. Gallbladder: No radiopaque gallstones or wall thickening. Biliary ducts: No biliary dilation. Pancreas: Homogenous enhancement. Spleen: Homogenous enhancement without laceration or hematoma. Adrenal Glands: Symmetric enhancement. Kidneys and Ureters: Symmetric enhancement. Simple cyst in left kidney is seen unchanged from prior studies. No hydronephrosis. No solid mass. No complex renal cystic lesion which requires follow up. Stomach and Bowel: Small hiatal hernia. No bowel obstruction or abnormal bowel wall thickening. Colonic diverticulosis without CT evidence of acute diverticulitis. Normal appendix. No abscess collection. Peritoneum: No abnormal intraperitoneal fluid. No free air. Ventral Wall: No hernia. Abdominal Nodes: No retroperitoneal or mesenteric adenopathy by size criteria. Vessels: Aorta and inferior vena cava are normal in size. Moderate to severe atherosclerotic calcifications are noted in abdominal aorta and bilateral iliac arteries unchanged from prior study. PELVIS: Pelvic Organs: Unremarkable. Bladder: Normal thickness. Pelvic Nodes: No enlarged lymph nodes. Miscellaneous: No inguinal hernias are seen. Bones: Pelvic ring and hip joints are intact. No displaced rib fractures. Chronic appearing compression deformity at T12 level is again seen unchanged from prior study. No acute vertebral body compression fractures. IMPRESSION: 1. No evidence of traumatic injury to the chest, abdomen or pelvis. 2. Small infiltrate/atelectasis in posterior and lateral periphery of bilateral lower lobes. No pleural effusion or pneumothorax. 3. Moderate to severe atherosclerotic calcifications in abdominal aorta and bilateral iliac arteries not significantly changed from prior study. Dictated by: Alex Frederick M.D. on 07/06/2024 at 9:08 Approved by: Alex Frederick M.D. on 07/06/2024 at 9:16
--- NOTE | 2024-07-06 07:56 | ED_ITS ---
HPI - Fall General Chief Complaint: Fall Stated Complaint: Fell Yesterday on his back and head Time Seen by Provider: 07/06/24 07:52 History of Present Illness HPI Narrative: Patient brought here by from home/assisted living. For complaints of mid upper back pain and right side chest and abdominal pain. Patient has history of AVM surgery back in March 2024. Has been doing well. Patient is not on any blood thinners. Patient states he was on a chair yesterday trying to hit a spider, he lost his balance and fell backwards onto his back and hitting his head. No loss of consciousness. Denies any headache. No nausea or vomiting. No altered mental status no confusion according to . Patient does not want anything for pain. He has been receiving Tylenol. Patient is able to stand and transfer from wheelchair to his bed. His back is exposed and abdomen is exposed Related Data Home Medications Medication Instructions Recorded Confirmed simvastatin 20 mg tablet 20 mg PO DAILY 12/15/23 12/22/23 tamsulosin 0.4 mg capsule 0.4 mg PO DAILY 12/15/23 12/22/23 Previous Rx's Medication Instructions Recorded meclizine 25 mg tablet 25 mg PO QID PRN dizziness #30 tabs 04/06/24 ondansetron 4 mg disintegrating 4 mg PO Q8H PRN nausea and 04/06/24 tablet vomiting #20 tabs lidocaine 5 % topical patch 1 patch topical DAILY #15 ea 07/06/24 Allergies Allergy/AdvReac Type Severity Reaction Status Date / Time No Known Drug Allergies Allergy Verified 04/11/24 19:13 Review of Systems Review of Systems Narrative: GENERAL: Negative chills, fatigue, malaise, fever, sweats. HEENT: Negative sinus pain, ear pain, sore throat RESPIRATORY: Negative dyspnea, cough CARDIOVASCULAR: Negative chest pain, palpitations GASTROINTESTINAL: Negative vomiting, nausea, abdominal pain : Negative dysuria, frequency, hematuria MUSCULOSKELETAL: Positive back, muscle or bony pain SKIN: Negative rash, skin lesions NEUROLOGIC: Negative weakness, numbness ROS Unobtainable: All systems reviewed & are unremarkable except as noted in HPI and below Patient History Medical History Stroke Coronary artery disease Hyperlipemia Hypertension Dementia Social History Smoking Status: Never smoker alcohol intake frequency: other Exam Narrative Exam Narrative: GENERAL: in no distress, not toxic not dyspneic HEAD: Normocephalic. Nontender scalp skull occiput no skin injury no bruising on the face EYES: Pupils equal round ENT: Mucous membranes moist. NECK: Trachea midline. No midline tenderness or step-off of the cervical or lumbar spine. CARDIOVASCULAR: Regular rate and rhythm RESPIRATORY: Clear to auscultation. Breath sounds equal bilaterally. No wheezes, rales, or rhonchi. GASTROINTESTINAL: Abdomen soft, reproducible right anterior lower ribs as well as right upper quadrant tenderness. No peritoneal signs no guarding no rebound. No bruising seen. No pain out of portion exam. EXTREMITIES: No gross deformities. Nontender bilateral shoulders elbows wrists pelvis hips knees and ankles BACK: No flank tenderness. There is reproducible midline and parathoracic and tenderness between the shoulder blades. No bruising seen on the back. NEURO: AOx4. Clear speech SKIN: Warm and dry PSYCH: Not anxious, is cooperative Initial Vital Signs Initial Vital Signs: Vital Signs Temperature 98.2 F 07/06/24 07:53 Pulse Rate 85 07/06/24 07:53 Respiratory Rate 18 07/06/24 07:53 Blood Pressure 156/70 H 07/06/24 07:53 Pulse Oximetry 96 07/06/24 07:53 Oxygen Delivery Method Room Air 07/06/24 07:53 Course Orders Ordered: ED Orders 07/06/24 07:55 CT Trauma Chest Abdomen Pelvis Stat 07/06/24 07:56 CT cervical spine wo con Stat CT head/brain wo con Stat 07/06/24 08:20 Complete Blood Count AUTO DIFF Stat Comprehensive Metabolic Panel Stat Lipase Stat PTT Partial Thromboplastin Juan Stat Prothrombin Time INR Stat Discontinued Medications Sodium Chloride (Normal Saline 0.9%) 500 mls @ 1,000 mls/hr IV BOLUS ONE Stop: 07/06/24 08:27 Last Admin: 07/06/24 08:33 Dose: 1,000 mls/hr Documented By: MAZIN Vital Signs Vital signs: Vital Signs - 8 hr 07/06/24 07:53 Temperature 98.2 F Pulse Rate 85 Respiratory Rate 18 Blood Pressure 156/70 H Pulse Oximetry 96 Oxygen Delivery Method Room Air MDM - Fall Lab Data 07/06/24 08:20 07/06/24 08:20 Labs: Lab Results 07/06/24 Range/Units 08:20 WBC 6.2 (4.5-11.0) X10^3/uL RBC 4.72 (4.5-5.9) X10^6/uL Hgb 14.3 (13.5-17.5) g/dL Hct 43.7 (41-53) % MCV 92.5 (80-100) fL MCH 30.4 (26-34) PG MCHC 32.8 (30-36) % RDW 13.4 (11.6-14.8) % Plt Count 219 (150-400) X10^3/uL Neut % (Auto) 59.4 (50-75) % Lymph % (Auto) 30.8 (25-40) % Reynolds % (Auto) 6.0 (3-14) % Eos % (Auto) 2.8 (2-4) % Baso % (Auto) 1.0 (0-2) % Neut # (Auto) 3700 (7755-9595) /uL Lymph # (Auto) 1900 (8569-4116) /uL Reynolds # (Auto) 400 (0-900) /uL Eos # (Auto) 200 (0-450) /uL Baso # (Auto) 100 (0-100) /uL PT 10.3 (9.4-12.5) SECONDS INR 0.9 (0.9-1.3) APTT 33 (25.1-36.5) SECONDS Sodium 141 (137-145) mmol/L Potassium 4.1 (3.4-5.1) mmol/L Chloride 105 (98-107) mmol/L Carbon Dioxide 29 (22-32) mmol/L BUN 20 (9-20) mg/dL Creatinine 1.46 H (0.66-1.25) mg/dL Estimated GFR 52 L (>60) mL/min BUN/Creatinine Ratio 13.7 (6-22) Glucose 96 (70-99) mg/dL Calcium 9.5 (8.4-10.2) mg/dL Total Bilirubin 0.4 (0.2-1.3) mg/dL AST 27 (17-59) IU/L ALT 24 (<50) IU/L Alkaline Phosphatase 93 (38-126) U/L Total Protein 8.0 (6.3-8.2) g/dL Albumin 4.4 (3.5-5.0) g/dL Globulin 3.6 (1.7-4.1) g/dL Albumin/Globulin Ratio 1.2 (1.0-2.8) Lipase 73 (23-300) U/L [facility] Narrative Medical decision making narrative: Patient brought here by from home/assisted living. For complaints of mid upper back pain and right side chest and abdominal pain. Patient has history of AVM surgery back in March 2024. Has been doing well. Patient is not on any blood thinners. Patient states he was on a chair yesterday trying to hit a spider, he lost his balance and fell backwards onto his back and hitting his head. No loss of consciousness. Denies any headache. No nausea or vomiting. No altered mental status no confusion according to . Patient does not want anything for pain. He has been receiving Tylenol. Patient is able to stand and transfer from wheelchair to his bed. His back is exposed and abdomen is exposed After history and exam, CBC CMP. Lipase CT head cervical spine chest abdomen and pelvis [facility] Medical records reviewed: Differential considered: Includes but not limited to intracranial bleed skull fracture cervical strain thoracic/lumbar vertebral compression fracture/fracture, rib fracture a liver injury/laceration Lab Test results independently reviewed as above. Pertinent findings: WBC 6.2 hemoglobin 14.3 sodium 141 potassium 4.1 BUN 20 creatinine 1.46 AST 27 ALT 24 lipase 73 Imaging studies independently reviewed: CT head cervical spine chest abdomen and pelvis Consultations: Re-evaluations: Discussion: Diagnosis: Discharge Plan Departure Patient Disposition: Home Clinical Impression: Contusion of back wall of thorax Qualifiers: Encounter type: initial encounter Thoracic wall location detail: bilateral Q ualified Code(s): S20.223A - Contusion of bilateral back wall of thorax, initial encounter Instructions: DI for Contusion, DI for Closed Head Injury Activity Restrictions/Additional Instructions: Your exam and laboratory studies and imaging studies are reassuring. No new broken bones or internal bleeding seen. Please see family doctor this week for re-evaluation. Lidocaine patch has been started and prescribed for you. Continue Tylenol for pain. Return if worse if any questions or concerns. Prescriptions: New lidocaine 5 % adhesive patch,medicated 1 patch topical DAILY Qty: 15 0RF Rx Instructions: leave on most painful area for up to 12 hrs No Action simvastatin 20 mg tablet 20 mg PO DAILY tamsulosin 0.4 mg capsule 0.4 mg PO DAILY ondansetron 4 mg tablet,disintegrating 4 mg PO Q8H PRN (Reason: nausea and vomiting) Qty: 20 0RF meclizine 25 mg tablet 25 mg PO QID PRN (Reason: dizziness) Qty: 30 0RF Referrals: Hemanth Segura MD [Primary Care Provider] - Stand Alone Forms: Patient Portal/API/Survey
--- NOTE | 2024-07-06 07:56 | DI.CT.S_ITS ---
PROCEDURE: CT CERVICAL SPINE WO CON INDICATIONS: Trauma TECHNIQUE: Noncontrast 3 mm thick sections acquired from the skull base to the T4 level. Sagittal and coronal reformats were then constructed. For radiation dose reduction, the following was used: automated exposure control, adjustment of mA and/or kV according to patient size. COMPARISON: None. FINDINGS: Image quality: Excellent. Bones: No fractures or dislocations. Visualized superior ribs are intact. Soft tissues: Prevertebral soft tissues are normal in thickness. No paravertebral hematomas. No apical pneumothoraces. IMPRESSION: No displaced fracture or traumatic subluxation. Dictated by: Lois Hernández M.D. on 07/06/2024 at 9:09 Approved by: Lois Hernández M.D. on 07/06/2024 at 9:10
--- NOTE | 2024-07-06 07:56 | DI.CT.S_ITS ---
PROCEDURE: CT HEAD/BRAIN WO CON INDICATIONS: Trauma TECHNIQUE: Noncontrast 4.5 mm thick angled axial sections acquired from the foramen magnum to the vertex, with coronal and sagittal reformats. For radiation dose reduction, the following was used: automated exposure control, adjustment of mA and/or kV according to patient size. COMPARISON: [facility], CT, CT HEAD/BRAIN WO CON, 04/06/2024, 14:58. [facility], CT, CT HEAD/BRAIN WO CON, 03/08/2024, 18:45. [facility], CT, CT HEAD/BRAIN WO CON, 04/11/2024, 20:18. FINDINGS: Image quality: Diagnostic. CSF spaces: Basal cisterns are patent. No extra-axial fluid collections. Ventricles are normal in size and shape. Brain: No midline shift. Partially calcified mass within the left frontal lobe with mass effect. Aneurysm coil is present. Previous hyperdensity extending into the left lateral ventricle demonstrates near complete interval resolution. No definitive new superimposed hemorrhage.. Rich-white matter interface is normal. Skull and face: Calvarium and visualized facial bones are intact, without suspicious lesions. Sinuses: Visualized sinuses and mastoids are clear. IMPRESSION: No acute intracranial pathology. Persistent appearance of partially calcified mass which is been present on multiple prior exams. This could be related to vascular malformation. No identified superimposed acute hemorrhage. Dictated by: Lois Hernández M.D. on 07/06/2024 at 8:51 Approved by: Lois Hernández M.D. on 07/06/2024 at 9:03
[2024-07-06 08:26] LABS: Add Manual Diff / Slide Review NO; Basophils Absolute Auto 100 /uL (0-100); Eosinophils Absolute Auto 200 /uL (0-450); Eosinophils Percent Auto 2.8 % (2-4); Hematocrit 43.7 % (41-53); Hemoglobin 14.3 g/dL (13.5-17.5); Lymphocytes Absolute Auto 1900 /uL (1100-4500); Lymphocytes Percent Auto 30.8 % (25-40); Mean Corpuscular HGB Conc 32.8 % (30-36); Mean Corpuscular Hemoglobin 30.4 PG (26-34); Mean Corpuscular Volume 92.5 fL (80-100); Monocytes Absolute Auto 400 /uL (0-900); Neutrophils Absolute Auto 3700 /uL (1500-7000); Neutrophils Percent Auto 59.4 % (50-75); Platelet Count 219 X10^3/uL (150-400); Red Blood Cell Count 4.72 X10^6/uL (4.5-5.9); Red Cell Distribution Width 13.4 % (11.6-14.8); White Blood Cell Count 6.2 X10^3/uL (4.5-11.0)
[2024-07-06 08:33] LABS: INR 0.9 (0.9-1.3); Prothrombin Time 10.3 SECONDS (9.4-12.5)
[2024-07-06] MEDS: SODIUM CHLORIDE 0.9% 500 ML 1000 ML IV (08:33)
[2024-07-06 08:35] LABS: PTT Partial Thromboplastin Tim 33 SECONDS (25.1-36.5)
[2024-07-06 08:38] LABS: Alanine Aminotransferase 24 IU/L (<50); Albumin 4.4 g/dL (3.5-5.0); Albumin Globulin Ratio 1.2 (1.0-2.8); Alkaline Phosphatase 93 U/L (38-126); Aspartate Aminotransferase 27 IU/L (17-59); BUN Creatinine Ratio 13.7 (6-22); Bilirubin Total 0.4 mg/dL (0.2-1.3); Blood Urea Nitrogen 20 mg/dL (9-20); Calcium 9.5 mg/dL (8.4-10.2); Carbon Dioxide 29 mmol/L (22-32); Chloride 105 mmol/L (98-107); Estimated Glomerular Filt Rate 52 mL/min (>60); Globulin 3.6 g/dL (1.7-4.1); Glucose 96 mg/dL (70-99); HEMOLYSIS < 15 (0-50); Lipase 73 U/L (23-300); Potassium 4.1 mmol/L (3.4-5.1); Sodium 141 mmol/L (137-145)
[2024-07-06] MEDS: LIDOCAINE 5% PATCH 1 EACH TOP (09:38)
[2024-07-06 09:54] VITALS: BP 145/67; PULSE 73; RESP 16; TEMP 36.6; O2SAT 99
== END 2024-07-06 09:55 | disposition home or self-care (01) ==
PROVIDERS: Emergency Provider Emergency Medicine; PCP Family Medicine
DX: S20.223A Contusion of bilateral back wall of thorax, initial encounter (principal); R07.9 Chest pain, unspecified; W07.XXXA Fall from chair, initial encounter; Z98.890 Other specified postprocedural states; Z86.79 Personal history of other diseases of the circulatory system
CPT/HCPCS: 36415; 70450; 71275; 72125; 74177; 80053; 83690; 85025; 85610; 85730; 96360; 99284; Q9967